=== PATIENT | male | born 1950 | race Caucasian/White ===

== ENCOUNTER → 2016-04-10 | Outpatient (CLI) | payer MEDICARE, OTHER ==
[2016-04-10 14:36] LABS: MEAN CORPUSCULAR HEMOGLOBIN 31.7 pg (27.0-33.0); MEAN CORPUSCULAR HGB CONC 33.4 g/dl (32.0-36.5); RED CELL DISTRIBUTION WIDTH 12.8 % (11.5-14.5); WHITE BLOOD COUNT 5.7 K/mm3 (4.0-10.0)
[2016-04-10 15:20] LABS: ALBUMIN/GLOBULIN RATIO 1.11 (1.00-1.93); ALKALINE PHOSPHATASE 60 U/L (45-117); ALT/SGPT 28 U/L (12-78); ANION GAP 5 MEQ/L (8-16); AST/SGOT 27 U/L (15-37); BILIRUBIN,TOTAL 0.9 MG/DL (0.2-1.0); BLOOD UREA NITROGEN 17 MG/DL (7-18); CALCIUM LEVEL 9.2 MG/DL (8.8-10.2); CARBON DIOXIDE LEVEL 31 MEQ/L (21-32); CHLORIDE LEVEL 107 MEQ/L (98-107); CREATININE FOR GFR 1.09 MG/DL (0.70-1.30); GLOMERULAR FILTRATION RATE > 60.0 (>49); GLUCOSE, FASTING 90 MG/DL (80-110); MAGNESIUM LEVEL 2.1 MG/DL (1.8-2.4); POTASSIUM SERUM 3.8 MEQ/L (3.5-5.1); SODIUM LEVEL 143 MEQ/L (136-145); TOTAL PROTEIN 7.6 GM/DL (6.4-8.2)
== END ==
LOC: M LAB 13:21
PROVIDERS: ATTEND Physician Assistant
DX: I48.0 Paroxysmal atrial fibrillation (principal)

== ENCOUNTER → 2016-08-02 | Outpatient (REF) | payer MEDICARE, OTHER | LOC: M LAB REF 16:10 | PROVIDERS: ATTEND Physician Assistant | DX: L02.511 Cutaneous abscess of right hand (principal) ==

== ENCOUNTER 2019-04-27 13:55 | Emergency (ER) | payer MEDICARE, OTHER ==
[~2019-04-27] VITALS: Ht 182.9 cm; Wt 101.2 kg
[2019-04-27] MEDS ORDERED: propofoL 1,000 MG in IV 1 EA IV SCH (14:20)
[2019-04-27] MEDS ORDERED: ETOMIDATE INJ 20MG/10ML VIAL IV ONE (14:30)
[2019-04-27] MEDS ORDERED: AMIODARONE HCL 360 MG in IV 1 EA IV SCH (14:30)
[2019-04-27] MEDS ORDERED: NS 500 ML IV ONE (14:30)
[2019-04-27] MEDS ORDERED: SUCCINYLCHOLINE INJ 200 MG/10 ML VIAL (J0330) IV ONE (14:30)
[2019-04-27 14:39] LABS: BASO # 0.1 10^3/uL (0.0-0.2); BASO % 0.5 % (0.0-1.0); EOS # 0.1 10^3/uL (0.0-0.5); EOS % 1.2 % (0.0-3.0); HEMATOCRIT 44.2 % (42.0-52.0); LYMPH % 25.5 % (24.0-44.0); MEAN CORPUSCULAR HEMOGLOBIN 31.5 pg (27.0-33.0); MEAN CORPUSCULAR HGB CONC 31.7 g/dl (32.0-36.5); MEAN CORPUSCULAR VOLUME 99.5 fl (80.0-96.0); MONO # 0.6 10^3/uL (0.0-0.8); MONO % 4.7 % (0.0-5.0); NEUTROPHILS # 7.6 10^3/uL (1.5-8.5); NEUTROPHILS % 64.4 % (36.0-66.0); PLATELET COUNT, AUTOMATED 310 10^3/uL (150-450); RED BLOOD COUNT 4.44 10^6/uL (4.30-6.10); WHITE BLOOD COUNT 11.8 10^3/uL (4.0-10.0)
[2019-04-27 14:44] LABS: ABG BASE EXCESS -7.5 (-2.0-2.0); ABG O2 SATURATION 94.3 % (95.0-99.0); ABG PARTIAL PRESSURE CO2 42.1 mmHg (35.0-45.0); ABG PARTIAL PRESSURE O2 78.7 mmHg (75.0-100.0); ABG STANDARD HCO3 18.4 MEQ/L (22.0-26.0); ABG TOTAL CO2 20.3 MEQ/L (23.0-31.0); ABG pH (ARTERIAL) 7.272 UNITS (7.350-7.450)
[2019-04-27 14:53] LABS: ALBUMIN 4.1 GM/DL (3.2-5.2); ALT/SGPT 77 U/L (12-78); BILIRUBIN,DIRECT 0.3 MG/DL (0.0-0.2); BILIRUBIN,TOTAL 0.7 MG/DL (0.2-1.0); BLOOD UREA NITROGEN 16 MG/DL (7-18); C REACTIVE PROTEIN QUANTITATIV < 0.30 MG/DL (0.00-0.30); CALCIUM LEVEL 8.6 MG/DL (8.8-10.2); CARBON DIOXIDE LEVEL 22 MEQ/L (21-32); CHLORIDE LEVEL 107 MEQ/L (98-107); CK-MB VALUE MASS 9.1 NG/ML (<3.6); CPK CREATINE PHOSPHOKINASE 559 U/L (39-308); CREATININE FOR GFR 1.47 MG/DL (0.70-1.30); FREE T4 1.02 NG/DL (0.76-1.46); GLOMERULAR FILTRATION RATE 50.4 (>42); GLUCOSE, FASTING 208 MG/DL (70-100); LIPASE 220 U/L (73-393); MAGNESIUM LEVEL 2.2 MG/DL (1.8-2.4); MB/CK RELATIVE INDEX 1.63 (< OR =4); NT-PRO BNP 696 PG/ML (<125); POTASSIUM SERUM 3.9 MEQ/L (3.5-5.1); SODIUM LEVEL 140 MEQ/L (136-145); TOTAL PROTEIN 7.4 GM/DL (6.4-8.2); TROPONIN I 0.13 NG/ML (< 0.10)
[2019-04-27 14:58] LABS: ERYTHROCYTE SEDIMENTATION RATE 7 mm/hr (0-20)
[2019-04-27 14:59] LABS: INR 1.29; PROTHROMBIN TIME 15.8 SECONDS (11.8-14.0)
--- NOTE | 2019-04-27 15:00 | REP ---
PORTABLE CHEST: AP supine portable film of the chest is performed. Endotracheal tube is seen. The tip is approximately 3 cm above the moisés. There is cardiomegaly. There is somewhat poor inhalation with mildly prominent vascular likely due to technical factors. No consolidating infiltrate is seen. Mediastinal silhouette appears magnified. Electronically Signed by Yevgeniy Saldivar MD 04/28/2019 01:48 P
[2019-04-27 15:15] LABS: ETHYL ALCOHOL (ETHANOL) 0.005 % (0.000-0.010)
[2019-04-27] MEDS ORDERED: METO1TAB7 PO (16:12)
[2019-04-27] MEDS ORDERED: XARE20TA PO (16:12)
[2019-04-27] MEDS ORDERED: AMIO200T40 PO (16:12)
[2019-04-27] MEDS ORDERED: LISI10TA4 PO (16:12)
[2019-04-27] MEDS ORDERED: LEVO25TA5 PO (16:12)
[2019-04-27] MEDS ORDERED: fentaNYL 100 MCG/2 ML INJECTION (J3010) IV ONE (16:30)
[2019-04-27] MEDS ORDERED: ROCURONIUM BROMIDE 50 MG/5 ML VIAL IV ONE (16:30)
[2019-04-27] MEDS ORDERED: NS 1,000 ML IV ONE ×2 (16:45→17:00)
[2019-04-27 16:54] VITALS: BP 123/81
--- NOTE | 2019-04-27 17:58 | REP ---
CT BRAIN WITHOUT CONTRAST: CT brain was performed without IV contrast. COMPARISON: 06/14/2014 There is mild atrophy. There is no midline shift or mass effect. No acute intracranial hemorrhage is seen. There is no extra-axial fluid collection. There is extensive opacification of the nasal cavity. There is mild opacification of inferior ethmoid air cells. IMPRESSION: No acute intracranial abnormality. Electronically Signed by Yevgeniy Saldivar MD 04/28/2019 10:29 P
--- NOTE | 2019-04-27 18:36 | ECGEPIP ---
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
--- NOTE | 2019-04-27 19:09 | REP ---
CHEST, PORTABLE: AP supine portable film of the chest is performed and compared to prior exams of the same day. Endotracheal tube is unchanged in position. Nasogastric tube traverses into the stomach. Pulmonary vasculature is prominent with cardiomegaly. There is mild right base atelectasis/infiltrate. There is increased left base atelectasis/infiltrate. Electronically Signed by Yevgeniy Saldivar MD 04/28/2019 10:31 P
--- NOTE | 2019-04-28 07:00 | REP ---
CHEST, PORTABLE: AP, supine, portable view of the chest is performed and compared to prior exam of the same day. Endotracheal tube is unchanged in position with the tip 3 cm above the moisés. Nasogastric tube is placed and traverses into the stomach. There is cardiomegaly There appears to be patchy atelectasis or infiltrate in the right lung base. Electronically Signed by Yevgeniy Saldivar MD 04/28/2019 10:32 P
== END 2019-04-27 16:58 | disposition short-term general hospital (02) ==
LOC: EDBD 13:55 → M ED 13:55
DX: I46.9 Cardiac arrest, cause unspecified (principal); I48.91 Unspecified atrial fibrillation; I51.7 Cardiomegaly; J98.11 Atelectasis; Z87.891 Personal history of nicotine dependence; Z93.0 Tracheostomy status; Z79.84 Long term (current) use of oral hypoglycemic drugs; Z79.899 Other long term (current) drug therapy
CPT/HCPCS: 36415; 36600; 51702; 70450; 71045; 80047; 80048; 80076; 82550; 82553; 82803; 83690; 83735; 83880; 84439; 84443; 84484; 85025; 85610; 85652; 85730; 86140; 87040; 92950; 93005; 93041; 94760; 96374; 99285; G0480; J0282; J0330; J3010

== ENCOUNTER 2019-05-12 14:06 | Inpatient (IN) | payer MEDICARE, OTHER ==
[~2019-05-12] VITALS: Ht 177.8 cm; Wt 90.7 kg
[~2019-05-12 14:06] MED LIST: AMIO200T40 PO; LEVO25TA5 PO; LISI10TA4 PO; METO1TAB7 PO; XARE20TA PO
[2019-05-12] MEDS ORDERED: ACETAMINOPHEN TAB 650MG DOSE (2X325MG) PO PRN (14:30)
[2019-05-12] MEDS ORDERED: AMIODARONE 150MG/3ML INJ (J0282) IVP STA (14:36)
[2019-05-12] MEDS ORDERED: DIGOXIN INJ 0.5 MG/2 ML AMP (J1160) IV ONE ×2 (15:00→18:00)
[2019-05-12 15:29] VITALS: BP 136/88
--- NOTE | 2019-05-12 15:30 | REP ---
Clinical: Heart failure. Technique: PA and lateral. Comparison: 04/27/2019. Findings: Cardiomegaly pulmonary vascular congestion, large left pleural effusion, small right pleural effusion and bibasilar atelectasis. No pneumothorax. Skeletal structures intact. Dual lead pacemaker noted. Impression: Cardiomegaly and CHF including pleural effusions (left greater than right) and bibasilar atelectasis. Electronically Signed by Fred Simmons MD 05/12/2019 03:22 P
[2019-05-12] MEDS ORDERED: AMIODARONE HCL 150 MG/100 ML PREMIXED BAG (NEXTERONE) (J0282 PER 30MG) IV ONE (15:45)
[2019-05-12] MEDS: FUROSEMIDE 20 MG/2 ML VIAL (J1940) IV SCH ×2 (15:56→20:04)
[2019-05-12] MEDS ORDERED: VITMTA PO (16:02)
[2019-05-12] MEDS ORDERED: ATOR1TAB21 PO (16:02)
[2019-05-12] MEDS ORDERED: THIA100T7 PO (16:02)
[2019-05-12] MEDS ORDERED: ASPI81CH33 PO (16:02)
[2019-05-12] MEDS ORDERED: ACET-683 PO (16:02)
[2019-05-12] MEDS ORDERED: FOLI1TAB11 PO (16:02)
[2019-05-12] MEDS ORDERED: CARV3.12 PO (16:02)
[2019-05-12] MEDS ORDERED: LEVO25TA5 PO (16:02)
[2019-05-12] MEDS ORDERED: ELIQ5TAB PO (16:02)
[2019-05-12] MEDS ORDERED: LISI10TA4 PO (16:02)
[2019-05-12] MEDS ORDERED: CLOP75TA2 PO (16:02)
[2019-05-12] MEDS ORDERED: NITR4TASL SL (16:02)
[2019-05-12 16:23] LABS: HEMATOCRIT 31.5 % (42.0-52.0); MEAN CORPUSCULAR HEMOGLOBIN 31.6 pg (27.0-33.0); MEAN CORPUSCULAR HGB CONC 31.7 g/dl (32.0-36.5); MEAN CORPUSCULAR VOLUME 99.7 fl (80.0-96.0); PLATELET COUNT, AUTOMATED 599 10^3/uL (150-450); RED BLOOD COUNT 3.16 10^6/uL (4.30-6.10); WHITE BLOOD COUNT 9.9 10^3/uL (4.0-10.0)
--- NOTE | 2019-05-12 16:26 | HPE ---
ADMISSION HISTORY AND PHYSICAL : DATE OF ADMISSION: 05/12/2019 PRIMARY PHYSICIAN: Dr. Delfino Olson ATTENDING PHYSICIAN: Dr. Meliton Leger INDICATION: Recurrent atrial fibrillation with rapid ventricular response with acute on chronic heart failure (systolic and diastolic dysfunction). HISTORY: This is a 68-year-old disabled, resident of [place] with three grown children has had a recent very eventful history. Successfully resuscitated from a cardiac arrest 04/27/2019. Transferred to [facility] and underwent cardiac catheterization on 04/30/2019 showing global left ventricular hypokinesis, left ventricular ejection fraction (LVEF) 25%, left ventricular end-diastolic pressure 24 mmHg with no major coronary artery obstruction simply a small distal obtuse marginal branch of the circumflex with 85% stenosis. 05/03/2019 underwent stenting of his third obtuse marginal branch. 05/03/2019 underwent implantation of biventricular implantable cardioverter defibrillator (ICD) in light of congestive heart failure/left bundle branch block and resuscitated ventricular fibrillation without clear-cut reversible precipitating factor. 05/04/2019, he was discharged from [facility] with instructions to maintain a modest salt and fluid intake restriction and on carvedilol, aspirin, clopidogrel, atorvastatin, low-dose levothyroxine, lisinopril, folic acid, Eliquis 5 mg twice a day, and was to arrange for a followup appointment with our office. Recently scheduled for 05/16/2019. He was seen today following remote monitor report of his ICD showing recurrent atrial fibrillation with rapid ventricular response. His last visit here prior to his cardiac arrest 04/06/2019, he had stopped all his medications including amiodarone for his known paroxysmal atrial fibrillation. Had gained at least 5 pounds and has developed obvious systemic edema, effort dyspnea and some orthopnea. Has been unaware of his heart action and denies any chest pain. He describes a nonproductive cough with no hemoptysis. Denies any lightheadedness or dizziness. Today, he admits to drinking at least six alcoholic beverages daily including beer, liquor and wine and had not stopped drinking. CORONARY RISK FACTORS: Advanced age. Male gender. Obesity, hypertension, prior long-term smoker, still smokes a cigar occasionally. No history of diabetes, hypercholesterolemia, symptomatic carotid vascular disease or family history of premature coronary heart disease. OTHER PAST MEDICAL PROBLEMS/SURGICAL PROBLEMS: Obesity, hypothyroidism, dilated cardiomyopathy with cardiomegaly dating back to at least 2014. Paroxysmal atrial fibrillation dating back to 2014. 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 EKG rate related left bundle branch block. Reduced visual acuity left eye due to retained cortical debris. Seasonal allergies. Alcoholism. Remote arm fracture requiring surgical reduction. Cholecystectomy 1990. Left eye surgery May 2014. Bilateral cataract extraction with lens replacements. SYSTEMS REVIEW: Reports fatigue but no fever, night sweats or chills. Wears corrective lenses for reading. No apparent hearing problem. Cough but no hemoptysis or purulent sputum production. No history of prior pneumonia. Somewhat reduced appetite but no heartburn, dysphagia, abdominal pain or change in bowel habit. No gastrointestinal (GI) bleeding. Nocturia three times nightly is chronic. No dysuria or hematuria. Occasional leg cramps but no joint complaints. Skin dryness but no rashes, ecchymotic lesions. History of anxiety, depression and alcoholism. Environmental seasonal allergies but no frequent infections. All other systems review is negative. MEDICATIONS: Current medications include: - Carvedilol 3.125 mg twice a day - atorvastatin 20 mg nightly - aspirin 81 mg daily - clopidogrel 75 mg daily - Eliquis 5 mg twice a day - levothyroxine 25 mcg daily - multivitamin 1 tablet daily - thiamine 100 mg by mouth daily - folic acid 1 mg daily - Tylenol 325 mg tablets 1 or 2 tablets every 4 hours as needed ALLERGIES: NONE KNOWN. PHYSICAL EXAMINATION: CONSTITUTIONAL: Somewhat barrel-chested, overweight elderly male was not comfortable lying flat but no dyspnea lying with the head of bed elevated 30 degrees or with him sitting. No obvious pallor or cyanosis. VITAL SIGNS: Heart rate 126 beats per minute and irregular, blood pressure 112/66 sitting, respiratory rate 18. Weight 218 pounds, height 71 inches, body mass index (BMI) 30.4 EYES: No obvious pallor or icterus. No xanthelasma. ENT/MOUTH: Normal oral moisture. No central cyanosis or pallor. NECK: Trachea midline. Thyroid did not appear to be enlarged. Jugular veins elevated at least 14 cm above the sternal angle. RESPIRATORY: Increased anteroposterior chest diameter with healed left subclavian ICD incision. Bibasilar dullness with few inspiratory rales. Prolongation of expiration but no audible wheeze. Apical impulse not palpable. Heart sounds were distant and variable. No clear audible gallop or murmur. Normal carotid upstroke but variable volume related to his arrhythmia. No bruits. Upper extremity pulses were symmetrical and normal. Abdominal aorta not palpable. Femoral pulses were difficult as were pedal pulses because of marked pedal edema. Has 1 cm pitting edema of his ankles, 4 mm pitting edema of his mid tibia, 1 mm of his proximal tibia, and none above his knees but up to 2 mm pitting edema his over sacrum and lower lumbar spine posteriorly. EXTREMITIES: No clubbing, peripheral cyanosis or splinter hemorrhages. GASTROINTESTINAL: Somewhat overweight, nontender, soft abdomen. Hepatomegaly but no splenomegaly. A few bowel sounds. Rectal examination not indicated. MUSCULOSKELETAL: No obvious joint deformities. Some proximal muscle weakness but normal tone. Normal spine curvature. NEURO/PSYCH: Appears somewhat lethargic and depressed but alert and oriented and gave a fair history. Normal symmetrical eye, facial, extremity movements. No involuntary movements. SKIN: No rashes, ecchymotic lesions, pallor or icterus. INVESTIGATIONS: Last available blood work from [facility] the time of his discharge showed a hemoglobin of 14, white blood cell count 11.8 thousand, normal platelet count. Electrolytes were normal with potassium 3.9, BUN 16 and creatinine 1.47, albumin 4.1, SGOT was elevated at 131, SGPT was 77, alkaline phosphatase was normal at 86, random glucose 208. CPK at the time of his discharge from hospital in [place] was elevated at 559 with negative MB fraction. Troponin I level was indeterminate at 0.13. Pro-BNP level was elevated at 696. Magnesium level was 2.2. Ultrasensitive TSH was elevated 17.5. Chest x-ray 05/03/2019: Portable upright study at [facility] showed obvious cardiomegaly with improving pulmonary edema and pleural effusions. Left-sided biventricular ICD pulse generator with no pneumothorax. EKG: Study performed today showed underlying atrial fibrillation with ventricular response averaging 125 bpm. Rare appropriate ventricular paced complex. Spontaneous complexes have a leftward axis and left bundle branch block configuration with QRS duration 169 ms. Last available EKG from [facility] 05/04/2019 showed consistent AV sequentially paced rhythm with biventricular pacing and QRS complexes measuring 96 ms with an incomplete left bundle branch block pattern. IMPRESSION/PLAN: 1. Paroxysmal atrial fibrillation with rapid ventricular response: Optimal rate control would be considered jones in order to improve left ventricular performance and prevent inappropriate ICD discharge. We will plan on giving him digoxin 0.25 mg IV and perhaps additional doses according to his ventricular response. He will be also started on bisoprolol 2.5 mg by mouth four times a day, hold for heart rate less than 100. In light of his history of recurrent paroxysmal atrial fibrillation and recent echocardiogram reporting no more than a mildly dilated left atrium as well as his history of ventricular fibrillation, we have also elected to start him on amiodarone starting with 200 mg by mouth four times a day. He will of course continue on his Eliquis oral anticoagulant therapy. Stool will be collected for occult blood. 2. Heart failure (systolic and diastolic dysfunction/acute on chronic): Well-documented dilated cardiomyopathy suspected to be related to his alcoholism plus/minus hypertension. No significant coronary or valvular heart disease. The crucial importance of alcohol cessation will be emphasized. He will be admitted to a telemetry unit for close monitoring and will be kept on a modest salt and fluid intake restriction. Temporarily, we will restrict his activities while we initiate diuresis. We will request the assistance of the cardiac rehabilitation program for congestive heart failure (CHF) education and gradual ambulation. He will be given Lasix IV 20 mg every 4 hours hoping to obtain a negative fluid balance of 1 liter daily. We will also initiate low-dose spirolactone 12.5 mg daily by mouth. As mentioned above, he will be placed on bisoprolol beta- val for his heart failure and rate control. Remains on oral anticoagulant therapy to protect him from a deep venous thrombosis with his restricted activity. His stool softener will be continued. A followup echocardiogram/Doppler study will be obtained tomorrow once his ventricular response is controlled. 3. Dilated cardiomyopathy: As mentioned above, suspected to be related to alcoholism and hypertension. Recent cardiac catheterization showing severe left ventricular dysfunction partially related to his left bundle branch block and paradoxical septal wall motion. Recently underwent cardiac resynchronization procedure with his last EKG showing a dramatic improvement with relatively narrow QRS complexes. We are cautiously optimistic that if his rate can be controlled and hopefully converted to sinus rhythm that this may have a dramatic positive impact on his longevity especially if he is able to abstain from alcohol. Pending his response to his beta-val and combination diuretic therapy, we have not started a vasodilator as he had been quite hypotensive while in [facility] recently. We will of course continue to monitor his chemistry and renal function closely. 4. Post cardiac arrest/biventricular ICD in situ: Gratifyingly, he has been free of ICD discharge despite intermittently rapid ventricular responses to with atrial fibrillation. His device is a 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 Recent intracardiac electrograms showed excellent values. He also had an excellent atrial pacing threshold. Ventricular pacing thresholds were also excellent when last measured 05/03/2019. 5. Coronary artery disease (conf[place] sal[place] vessel)/post obtuse marginal stenting: As mentioned above, really does not have any significant coronary obstruction. This small obtuse marginal branch was stented but was not believed to be a culprit responsible for his recent cardiac arrest. Of course, he will continue on controlled beta-val, aspirin and Plavix. However, his atorvastatin may be placed on hold temporarily along with his aspirin. His elevated CPK is suspected to be on the basis of rhabdomyolysis. Followup CPK is pending at this time. 6. Hypothyroidism (unspecified): Has been on at least low-dose levothyroxine because of prior amiodarone therapy. His amiodarone had been discontinued shortly prior to his cardiac arrest 03/04/2019 by the patient himself. We will continue to monitor his TSH carefully and make dose adjustments as necessary to his hormone replacement. We have discussed these plans with the patient and his family who appeared to understand and agree. Further investigations and treatment will depend upon his response to these initial measures. KUSHALD
[2019-05-12 16:56] LABS: ALBUMIN 3.5 GM/DL (3.2-5.2); ALT/SGPT 25 U/L (12-78); BILIRUBIN,TOTAL 0.9 MG/DL (0.2-1.0); BLOOD UREA NITROGEN 22 MG/DL (7-18); CALCIUM LEVEL 8.8 MG/DL (8.8-10.2); CARBON DIOXIDE LEVEL 29 MEQ/L (21-32); CHLORIDE LEVEL 105 MEQ/L (98-107); CREATININE FOR GFR 1.03 MG/DL (0.70-1.30); GLOMERULAR FILTRATION RATE > 60.0 (>42); GLUCOSE, FASTING 106 MG/DL (70-100); POTASSIUM SERUM 4.8 MEQ/L (3.5-5.1); SODIUM LEVEL 139 MEQ/L (136-145); TOTAL PROTEIN 6.9 GM/DL (6.4-8.2)
[2019-05-12 16:57] LABS: CK-MB VALUE MASS 1.6 NG/ML (<3.6); CPK CREATINE PHOSPHOKINASE 71 U/L (39-308); MB/CK RELATIVE INDEX 2.25 (< OR =4); TROPONIN I < 0.02 NG/ML (< 0.10)
[2019-05-12 17:04] LABS: MAGNESIUM LEVEL 2.2 MG/DL (1.8-2.4); THYROID STIMULATING HORMONE 13.4 uIU/ML (0.358-3.740)
[2019-05-12] MEDS: SPIRONOLACTONE 12.5MG PER 1/2 TABLET PO SCH (17:04)
[2019-05-12] MEDS: BISOPROLOL FUM 2.5 MG PER 1/2TAB PO SCH ×2 (17:04→20:05)
[2019-05-12] MEDS ORDERED: AMIODARONE HCL 150 MG in IV 1 EA IV STA (17:46)
[2019-05-12 20:00] VITALS: BP 125/84
[2019-05-12] MEDS: DOCUSATE SODIUM 100 MG CAP PO SCH (20:04)
[2019-05-12] MEDS: APIXABAN 5 MG TAB (ELIQUIS) PO SCH (20:04)
[2019-05-12] MEDS: FAMOTIDINE 20 MG TAB PO SCH (20:05)
[2019-05-12] MEDS: AMIODARONE 200 MG TAB (PACERONE) PO SCH (20:05)
[2019-05-12] MEDS ORDERED: ATORVASTATIN 20 MG TAB PO SCH (21:00)
[2019-05-13] VITALS (7 sets, daily range): BP systolic 96–126; BP diastolic 59–80
[2019-05-13] MEDS: FUROSEMIDE 20 MG/2 ML VIAL (J1940) IV SCH ×6 (00:35→20:00)
[2019-05-13] MEDS ORDERED: FLUBLOK(EGG FREE)(QUAD)INFLUENZA VACC 0.5ML SYRINGE (90682)18YRS&OLDER IM SCH (01:45)
[2019-05-13] MEDS ORDERED: PNEUMOCOCCAL VACCINE 0.5ML SYRINGE(90732) PNEUMOVAX 23 IM SCH (01:45)
[2019-05-13 05:32] LABS: ALBUMIN 3.5 GM/DL (3.2-5.2); BLOOD UREA NITROGEN 26 MG/DL (7-18); CALCIUM LEVEL 8.8 MG/DL (8.8-10.2); CARBON DIOXIDE LEVEL 32 MEQ/L (21-32); CHLORIDE LEVEL 100 MEQ/L (98-107); CREATININE FOR GFR 1.26 MG/DL (0.70-1.30); GLOMERULAR FILTRATION RATE > 60.0 (>42); GLUCOSE, FASTING 93 MG/DL (70-100); PHOSPHORUS LEVEL 3.9 MG/DL (2.5-4.9); POTASSIUM SERUM 4.5 MEQ/L (3.5-5.1); SODIUM LEVEL 137 MEQ/L (136-145)
--- NOTE | 2019-05-13 07:26 | ECGEPIP ---
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
[2019-05-13] MEDS: THIAMINE 100 MG TAB PO SCH (08:40)
[2019-05-13] MEDS: FOLIC ACID 1 MG TAB PO SCH (08:40)
[2019-05-13] MEDS: BISOPROLOL FUM 2.5 MG PER 1/2TAB PO SCH ×4 (08:40→20:33)
[2019-05-13] MEDS: MULTIVITAMINS/MINERALS THERAP 1 TAB PO SCH (08:40)
[2019-05-13] MEDS: SPIRONOLACTONE 12.5MG PER 1/2 TABLET PO SCH (08:41)
[2019-05-13] MEDS: APIXABAN 5 MG TAB (ELIQUIS) PO SCH ×2 (08:41→20:33)
[2019-05-13] MEDS: AMIODARONE 200 MG TAB (PACERONE) PO SCH ×4 (08:41→20:33)
[2019-05-13] MEDS: DOCUSATE SODIUM 100 MG CAP PO SCH ×2 (08:41→20:29)
[2019-05-13] MEDS ORDERED: CLOPIDOGREL 75 MG TAB PO SCH (09:00)
--- NOTE | 2019-05-13 10:07 | ECGEPIP ---
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
--- NOTE | 2019-05-13 18:52 | ECHO ---
DATE OF PROCEDURE: 05/13/2019 AGE: 68 GENDER: Male HEIGHT: 70 inches WEIGHT: 220 pounds BODY SURFACE AREA: 2.18 m2. PATIENT LOCATION: Inpatient, ICU, room 3203 REFERRING PHYSICIAN: Meliton Leger MD INDICATION: Heart failure (unspecified). Paroxysmal atrial fibrillation. 2D MEASUREMENTS: RV: 3.9 cm LV: 5.5 cm Septum: 1.4 cm Posterior wall: 1.3 cm Aortic root: 3.4 cm LA: 4.8 cm LVEF: 20%? DOPPLER MEASUREMENTS: AV: 0.9 m/s LVOT: 0.85 m/s LVOT diameter: 2.3 cm MV-E: 90 Early mitral deceleration time: 218 ms E prime medial: 6.2 E prime lateral: 6.5 Average E/E prime ratio: 14.2/PCWP: 19.5 mmHg PV: 0.75 m/s Pulmonary artery acceleration time: 70 ms RVSP: 56 mmHg IVC: 2.7 cm COMMENTS Underlying atrial fibrillation with fairly controlled ventricular response. Evidence of intermittent ventricular pacing alternating with spontaneous complexes both having an left bundle branch block (LBBB) configuration. Mild eccentric left ventricle hypertrophy with fairly globally severe hypokinesis with intermittent paradoxical septal motion and virtual akinesis of the apex. Moderately dilated left atrium with current Doppler estimated mean left atrial pressure that was at least mildly increased. Right heart chambers were upper limits of normal with hypokinesis and Doppler evidence of at least moderately severe pulmonary hypertension. Prominently dilated inferior vena cava without respiratory collapse in keeping with elevated central venous pressure. Mild aortic valvular sclerosis without stenosis but mild insufficiency. Normal aortic root and ascending aortic diameters. Normal-appearing mitral valvular apparatus with "low flow" appearance to leaflet motion, but no posterior systolic buckling. Mild mitral insufficiency. Normal appearing tricuspid valve with mild insufficiency. Pacing leads could be visualized traversing right heart structures. Large pericardial effusion measuring 1.3 cm anteriorly and a maximum of 3.3 cm posteriorly, but no evidence of cardiac chamber compression. Difficult to interpret Doppler findings, which vary with the patient's underlying atrial fibrillation and spontaneous versus paced QRS complexes. Left pleural effusion.
[2019-05-13] MEDS ORDERED: AMIODARONE HCL 150 MG in IV 1 EA IV STA (19:44)
[2019-05-13] MEDS ORDERED: DIGOXIN INJ 0.5 MG/2 ML AMP (J1160) IV ONE (19:45)
[2019-05-13] MEDS: FAMOTIDINE 20 MG TAB PO SCH (20:33)
[2019-05-13] MEDS: LEVOTHYROXINE 50MCG TABLET (0.05MG) PO SCH (20:33)
--- NOTE | 2019-05-13 20:33 | IPN ---
DATE: 05/13/2019 CARDIOLOGY PROGRESS NOTE: SUBJECTIVE: The patient claims that his breathing appears to be slightly better. He continues to have intermittent feeling of jumpiness or restlessness. Remains unaware of his heart action. No chest discomfort. No bleeding problems on his combination Plavix and Eliquis. OBJECTIVE: Overweight, somewhat barrel-chested, elderly male laying comfortably with head of the bed elevated at 30 degrees. Heart rate averaging 104 beats per minute (bpm) and regular with frequent irregularities. Blood pressure 109/59. Respiratory rate 16. Oxygen saturation 97% on room air. Afebrile. Intake and output balance in the past 24 hours has been negative one liter. Continues to have normal oral moisture and significantly elevated neck veins with lumbar, sacral and lower extremity pitting edema. Bibasilar dullness posteriorly with few bibasilar inspiratory rales. No wheezes. 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 Spontaneous QRS complexes with left bundle branch block alternating with appropriate biventricular paced complexes. EKG: This shows what is described above, underlying atrial fibrillation with controlled ventricular sponsor averaging 92 beats per minute with spontaneous complexes having a left bundle branch block morphology alternating with biventricular complexes that are slightly narrower with a normal axis and RBBB configuration. The rate today, however, was slower than yesterday. BLOOD WORK: Hemoglobin yesterday was 10.0 with normal white blood cell count but significantly elevated platelet count of 599,000. Chemistry shows electrolyte balance that has been preserved today despite diuretic therapy. BUN was 22 yesterday to 26 today, creatinine was 1.0 yesterday to 1.26 today. Fasting glucose today 93, magnesium level yesterday 2.2. Troponin I level was negative. Albumin was 3.5. Total CPK was normal at 71. Other liver function studies were also normal. Ultrasensitive TSH remains elevated at 13.4 but is improved from 17.5 04/27/2019 prior to starting his current thyroid medication. ECHOCARDIOGRAM: Study performed earlier today with separate official dictated report showed moderate eccentric left ventricle hypertrophy with global hypokinesis and intermittent paradoxical septal motion, estimated left ventricle ejection fraction 20% ?, moderately dilated left atrium with evidence of an elevated mean left atrial pressure. Right heart chamber sizes were at least mildly dilated with Doppler evidence of moderately severe pulmonary hypertension. Prominently dilated inferior vena cava with absent respiratory collapse in keeping with his clinical right heart failure. Mild aortic valvular sclerosis with mild insufficiency. Low flow appearance to mitral leaflet motion with mild mitral insufficiency. Pacing leads could be visualized traversing right heart structures but there was a large pericardial effusion measuring 1.3 cm anteriorly and 3.3 cm posteriorly, but no evidence of cardiac chamber compression. At least mild pleural effusion. IMPRESSION/PLAN: 1. Recurrent atrial fibrillation with rapid ventricular response: Despite combination digoxin, bisoprolol and amiodarone. Continues to have intermittently rapid ventricular responses. This irregularity obviously interferes with his biventricular pacing and is believed to have accounted for his decompensation. We have given him additional digoxin and intravenous amiodarone today. We have also increased his low pacing rate of his biventricular implantable cardioverter defibrillator (ICD) to 90 beats per minute for the time being. 2. Heart failure (systolic and diastolic/acute on chronic): Has some symptomatic improvement associated with a negative one liter fluid balance. We are hoping with the program changes of his device and additional negative chronotropic therapy and more regular biventricular pacing that left ventricular performance will improve. Current blood pressure is adequately controlled. We will be able to assess improved cardiac output from his blood urea nitrogen (BUN)/creatinine ratio. He remains on a modest salt and fluid intake restriction with IV diuretic therapy aiming for a negative fluid balance of one liter daily. 3. Pericardial effusion: Despite the magnitude of this effusion which is quite large, he does not have any current evidence of cardiac chamber compression or tamponade. I still feel that this will have to be dealt with a pericardiocentesis. At this point, we have placed his clopidogrel on hold and once this has been off for five days, we intend to temporarily withhold his Eliquis. Consultation will be placed with Dr. Maurice Bates, thoracic surgery, to help us deal with his fluid collection. I suspect it is on the basis of the trauma associated with his chest compression combined with combination antiplatelet and anticoagulant therapy. 4. Dilated cardiomyopathy: Heart failure as mentioned above. Recent echocardiogram shows persistence of severe left ventricular systolic impairment. We are cautiously optimistic that with regularization of his ventricular rate and increase in biventricular stimulation that this will improve. At this point, he is on digoxin, bisoprolol and diuretic therapy with low-dose spironolactone. Vasodilator therapy has not been started at this time because of his soft blood pressure and renal insufficiency. I am cautiously optimistic we will be able to add at least low-dose Entresto once his renal perfusion has improved. 5. Post cardiac arrest/biventricular ICD in situ: Has remained free of potentially malignant ventricular arrhythmia. Complete pacemaker/ICD interrogation was performed today and this shows intra-atrial electrograms that vary quite dramatically as we would expect with his atrial fibrillation, ventricular intracardiac electrograms are fine. We could not test his atrial pacing threshold with his atrial fibrillation but both right and left ventricular pacing thresholds were excellent. Current program settings ensure more than a 2:1 safety pacing margin. As mentioned above, we have at least temporarily increased his ventricular low rate in order to overdrive spontaneous activity and increase biventricular stimulation. We have also programmed his pacemaker to DDI in order to minimize inappropriate tracking of atrial fibrillation signal. 6. Coronary artery disease ([place] vessel)/post obtuse marginal stenting: As mentioned has been free of any chest discomfort. EKG ST/T wave changes are related to spontaneous alternating with ventricular paced complexes not ischemia. Troponin I level was negative. Remains on protective bisoprolol and Eliquis. His atorvastatin has been placed on hold because of prior rhabdomyolysis and his Plavix has been placed on hold in preparation for possible pericardiocentesis. 7. Hypothyroidism: On his low-dose thyroid replacement therapy, levofloxacin 25 mcg daily, his ultrasensitive thyroid-stimulating hormone (TSH) has decreased over the course of the past two weeks. We will plan on resuming this today, administering it at bedtime to maximize absorption. The patient appears to understand the complex nature of his medical problems and is in agreement with our current plan.
[2019-05-14] VITALS: BP 99/61
[2019-05-14] MEDS: FUROSEMIDE 20 MG/2 ML VIAL (J1940) IV SCH ×5 (00:03→16:00)
[2019-05-14 04:00] VITALS: BP 110/64
[2019-05-14 05:09] LABS: ALBUMIN 3.3 GM/DL (3.2-5.2); CALCIUM LEVEL 7.8 MG/DL (8.8-10.2); CREATININE FOR GFR 1.39 MG/DL (0.70-1.30); GLOMERULAR FILTRATION RATE 53.8 (>42); PHOSPHORUS LEVEL 3.9 MG/DL (2.5-4.9); POTASSIUM SERUM 4.3 MEQ/L (3.5-5.1)
[2019-05-14] MEDS: LEVOTHYROXINE 50MCG TABLET (0.05MG) PO SCH (06:16)
--- NOTE | 2019-05-14 06:55 | ECGEPIP ---
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
[2019-05-14 08:00] VITALS: BP 114/61
[2019-05-14] MEDS: MULTIVITAMINS/MINERALS THERAP 1 TAB PO SCH (08:08)
[2019-05-14] MEDS: APIXABAN 5 MG TAB (ELIQUIS) PO SCH (08:08)
[2019-05-14] MEDS: FOLIC ACID 1 MG TAB PO SCH (08:08)
[2019-05-14] MEDS: AMIODARONE 200 MG TAB (PACERONE) PO SCH ×4 (08:08→21:57)
[2019-05-14] MEDS: THIAMINE 100 MG TAB PO SCH (08:08)
[2019-05-14] MEDS: SPIRONOLACTONE 12.5MG PER 1/2 TABLET PO SCH (08:09)
[2019-05-14] MEDS: DOCUSATE SODIUM 100 MG CAP PO SCH ×2 (09:00→22:08)
[2019-05-14] MEDS: BISOPROLOL FUM 2.5 MG PER 1/2TAB PO SCH ×3 (09:00→17:00)
--- NOTE | 2019-05-14 09:59 | MHCRPDOC ---
[facility] Consultation Consultation Consult Esa Pemberton MRN: N/A Date of : N/A Date of Service: 05/14/2019 Chief Complaint Consultation for depression. History of Present Illness Patient is a 68-year-old man who had presented after cardiac arrest, had a psychiatric consult initiated as the patient reportedly had been struggling with the adjustment due to his health problems. He has had 2 cardiac problems and had a cardiac arrest prior to this admission. He has met within the ICU. During the entirety of his stay, he denied any suicidal or homicidal ideation and the consultation revealed no concerns from the consulting attending about suicidality, but the primarily consulting for "pressure." I met with the patient. He reported that he was feeling down about the situation, but had otherwise been trying to have a "attitude" about his cardiac arrest. He reports that at times he feels down; however, he has not had significant psychiatric history and generally tries to focus on the positive things in life. He reports that multiple stressors do make him feel down, but does not have any neurovegetative symptoms consistent with MDD. Review Of Systems Depression: The patient denies any episodes of unprovoked depressed mood associated with neurovegetative symptoms lasting longer than 2 weeks with symptoms present nearly everyday. Anxiety: The patient denies any excessive worry associated with physical symptoms. They deny any experience of discreet panic in the past. Therese: The patient denies any episodes of euphoria/dysphoria associated with decreased need for sleep, hedonism, talkatively or impulsivity lasting longer than 5 days. Psychotic: The patient denies any experiences of auditory or visual hallucinations. They deny any episodes of paranoia or delusional thinking in the past Trauma: The patient denies any traumatic events associated with nightmares or intrusive thoughts. Borderline: The patient screens negative for borderline personality at this junction. Past Psychiatric History The patient reports no history of psychiatric admissions, medication trials or current follow up. Denies any history of suicide attempts. Family Psychiatric History The patient denies/is unaware any history of mental health history including addictions and suicide. Social History Patient grew up in the local area, had worked for quite some time and then had retired. The patient has no history of legal problems, has been to his for many years. He reports she has health problems and this is a stressor. He works part-time at [employer] and reports he likes that. Denies any history of substance use, reports he used to smoke tobacco 23 years ago, but denies any excessive alcohol use, opioid use, stimulant use or any other concerning issues. He lives with his at this time. Medical History Has significant cardiac problems. Allergies See below Mental Status Examination General: Well dressed with good hygiene Speech: Spontaneous and fluid Thought processes: Linear and logical MSK: Smooth and coordinated gait, no signs of tremors or involuntary orofacial movements Thought content: Future orientated Abstract reasoning, and computation: Intact Description of associations: Intact Description of abnormal or psychotic thoughts: Denies any suicidal or homicidal ideation. Denies any auditory or visual hallucinations. Does not appear to be responding to internal stimuli. Does not appear to be endorsing any bizarre or paranoid ideation. Judgment: fair Insight: fair Orientation: Alert and orientated 3 Cognition: Grossly normal Recent and remote memory: Intact Attention span and concentration: Intact Fund of knowledge: Adequate Mood: "okay" Affect: Euthymic with a full range Diagnoses Situational disturbance. Assessment and Plan Patient is a 68-year-old man with a history not consistent of any psychiatric concerns presents after cardiac arrest. A consultation was called for reactive depression. I attempted to investigate the chart, his nursing staff and other collateral sources of information in his medical care here including the attending physician; however, there has been no concerns relate about suicidal thoughts. Reportedly, there was concerns from a family member "a nephew" about his reported depression; however, I was not able to ascertain who this was or was able to reach out to them in order to further ascertain if there was any concerns about suicide; however, the patient has been in the hospital for close to 48 hours and has been denying suicidal or homicidal ideation . After discussion with the patient, he declines a trial of antidepressants and feels that outpatient counseling would be more helpful for him. He does not meet involuntary criteria for psychiatric admission as I have no report of suicidal or homicidal ideation. He has a normal mental status exam fair insight into the situation appears to be primarily situational. He is future oriented and appears to be coping well and does not likely have a psychiatric illness at this time that I can diagnose given the symptoms obtained from him and thus he declines a voluntary admission to inpatient psychiatry and thus will not meet criteria to be treated there unless he change his mind. Disposition No inpatient psychiatry. Please return, call if there is any safety concerns or if suicidality emerges or further arise. Time Spent 30 minutes. Friday Vital Signs Vital Signs Date Time Temp Pulse Resp B/P (MAP) Pulse Ox O2 Delivery O2 Flow Rate FiO2 05/14/19 09:00 90 114/61 05/14/19 08:00 98.7 20 95 Room Air Laboratory Data 24H Labs Laboratory Tests 2 05/14/19 04:12: Anion Gap 8, Glomerular Filtration Rate 53.8, Calcium Level 7.8L, Phosphorus Level 3.9, Albumin 3.3 Home Medications Current Medications Current Medications Medications (Trade) Dose Ordered Sig/Jose Route PRN Reason Start Time Stop Time Status Last Admin Dose Admin Acetaminophen (Tylenol Tab) 650 mg Q4H PRN PO PAIN OR FEVER 05/12/19 14:30 Amiodarone HCl (Cordarone I.v.) 150 mg STAT STAT IVP 05/12/19 14:36 05/12/19 14:37 Cancel Amiodarone HCl (Pacerone, Cordarone) 200 mg QID PO 05/12/19 21:00 05/14/19 08:08 Amiodarone HCl 150 mg/IV Miscellaneous Supplies 100 ml @ 600 mls/hr STAT STAT IV 05/12/19 17:46 05/12/19 17:55 DC 05/12/19 18:00 Amiodarone HCl 150 mg/IV Miscellaneous Supplies 100 ml @ 600 mls/hr STAT STAT IV 05/13/19 19:44 05/13/19 19:53 DC 05/13/19 20:11 Apixaban (Eliquis) 5 mg BID PO 05/12/19 21:00 05/14/19 08:08 Atorvastatin Calcium (Lipitor) 20 mg QHS PO 05/12/19 21:00 05/12/19 15:31 DC Bisoprolol Fumarate (Zebeta) 2.5 mg QID PO 05/12/19 17:00 05/13/19 12:05 Clopidogrel Bisulfate (PLAVix) 75 mg DAILY PO 05/13/19 09:00 05/13/19 17:34 DC 05/13/19 08:41 Docusate Sodium (Colace) 100 mg BID PO 05/12/19 21:00 Famotidine (Pepcid) 40 mg QHS PO 05/12/19 21:00 05/13/19 20:33 Folic Acid (Folic Acid) 1 mg DAILY PO 05/13/19 09:00 05/14/19 08:08 Furosemide (LASIX injection) 20 mg Q4H IV 05/12/19 16:00 05/14/19 08:09 Home Med (Med Rec Complete!) ASDIRECTED XX 05/12/19 16:15 05/12/19 16:05 DC Influenza Virus Vaccine (Flublok Quad(Egg-Free)18y&Older Influenza) 0.5 ml ASDIRECTED IM 05/13/19 01:45 Levothyroxine Sodium (Synthroid) 50 mcg DAILY@06 PO 05/13/19 22:00 05/14/19 06:16 Magnesium Hydroxide (Milk Of Magnesia) 30 ml DAILY PRN PO CONSTIPATION 05/12/19 14:30 Multivitamins (Theragram-M) 1 tab DAILY PO 05/13/19 09:00 05/14/19 08:08 Pneumococcal Polyvalent Vaccine (Pneumovax 23) 0.5 ml ASDIRECTED IM 05/13/19 01:45 Spironolactone (Aldactone) 12.5 mg DAILY PO 05/12/19 09:00 05/14/19 08:09 Thiamine HCl (Thiamine HCl) 100 mg DAILY PO 05/13/19 09:00 05/14/19 08:08 Scheduled Apixaban (Eliquis) 5 Mg Tablet, 5 MG PO BID, (Reported) Aspirin (Aspirin) 81 Mg Tab.chew, 81 MG PO DAILY, (Reported) Atorvastatin Calcium (Atorvastatin Calcium) 20 Mg Tablet, 20 MG PO QHS, (Reported) Carvedilol (Carvedilol) 3.125 Mg Tablet, 3.125 MG PO BID, (Reported) Clopidogrel Bisulfate (Clopidogrel) 75 Mg Tablet, 75 MG PO DAILY, (Reported) Folic Acid (Folic Acid) 1 Mg Tablet, 1 MG PO DAILY, (Reported) Levothyroxine Sodium (Levothyroxine Sodium) 25 Mcg Tablet, 25 MCG PO QAM, (Reported) Lisinopril (Lisinopril) 10 Mg Tablet, 10 MG PO QHS, (Reported) Multivitamins (Thera M Plus Tablet) 1 Each Tablet, 1 TAB PO DAILY, (Reported) Thiamine HCl (Thiamine HCl) 100 Mg Tablet, 100 MG PO DAILY, (Reported) Scheduled PRN Acetaminophen (Acetaminophen) 500 Mg Tablet, 500 MG PO Q6H PRN for PAIN, (Reported) Nitroglycerin (Nitrostat) 0.4 Mg Tab.subl, 0.4 MG SL Q5MP PRN for CHEST PAIN, (Reported) Allergies Coded Allergies: No Known Allergies (Unverified , 03/21/14) ALYSSA SALEH DO May 14, 2019 09:59
[2019-05-14 12:00] VITALS: BP 123/81
--- NOTE | 2019-05-14 13:48 | REP ---
CT CHEST WITHOUT CONTRAST: HISTORY: Pericardial effusion. COMPARISON: Chest x-ray, May 12, 2019. CT FINDINGS: There is a large pericardial effusion visible. Four-chamber cardiomegaly is observed. Right ventricular contours do not appear to be flattened or compressed. There is a pacemaker in place. There is a small left-sided pleural effusion. There are small bilateral pleural effusions, left larger than right. There are a few scattered normal-sized mediastinal lymph nodes. On lung window settings, there is some atelectatic change in the lower lobes bilaterally, left more so than right. No infiltrate or mass lesion is observed. No bony destructive lesion is appreciated. There are clips in the gallbladder fossa. Normal adrenals are seen bilaterally. The left kidney is not visible in the left renal fossa. IMPRESSION: Large pericardial effusion. Small bilateral pleural effusions, left larger than right. Cardiomegaly. Question ectopic left kidney (not present in the left renal fossa). Electronically Signed by Leonardo Montana MD 05/14/2019 02:18 P
[2019-05-14 16:00] VITALS: BP 118/69
[2019-05-14 20:00] VITALS: BP 128/88
--- NOTE | 2019-05-14 20:39 | IPN ---
DATE: 05/14/2019 CARDIOLOGY PROGRESS NOTE SUBJECTIVE: The patient claims to be feeling quite well at this point, lying fairly flat without shortness of breath. Has been up without lightheadedness. Continues to feel jittery refraining from alcohol. Has met with psychiatry and thoracic surgery earlier today. Plans are for him to undergo percutaneous cardiocentesis tomorrow. OBJECTIVE: Overweight, barrel-chested male, lying comfortably. Heart rate 90 beats per minute and regular with irregularities. Blood pressure 118/69, respiratory rate 20, oxygen saturation 94% on room air. Afebrile. His weight today is down more than a kilogram from 2 days ago with negative fluid balance of 1200 mL yesterday and 1 liter so far today. Neck veins remain elevated but has improved air entry over both lung burks with no current inspiratory rales. No longer has sacral pitting edema but still has distal lower leg pitting up to the level of his knees bilaterally. 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 Spontaneous complexes having left bundle branch block pattern, which is wider than the paced complexes. EKG: This was reviewed independently and again shows underlying atrial fibrillation with mostly paced complexes showing an extreme leftward axis with the right bundle branch block configuration, in keeping with biventricular stimulation. Significantly improved from that on admission with more ventricular complexes. BLOOD WORK: Chemistry today confirms electrolyte balance with BUN that is increased to 34, creatinine that is increased to 1.39, glucose was 90. Albumin soft at 3.3. IMPRESSION/PLAN: 1. Recurrent atrial fibrillation with rapid ventricular response: Continues on amiodarone loading. With his renal insufficiency, I do not plan on administering further doses of digoxin but will plan on giving his bisoprolol routinely 5 mg twice a day to control his spontaneous activity and hopefully facilitate his biventricular pacing. Current oral anticoagulation is on hold in preparation for his pericardiocentesis tomorrow morning. 2. Heart failure (systolic and diastolic/acute on chronic): He has made some good progress with improvement in his congested state with combination of modest salt/fluid intake restriction, IV Lasix, and biventricular pacing. Frustratingly, has worsening renal function, though his blood pressure is not low. In preparation for his procedure tomorrow, I have placed his IV Lasix and spirolactone on hold. 3. Pericardial effusion: Remarkably despite the magnitude of this collection does not appear to have clinical evidence of tamponage. However, undoubtedly this will be a potential threat, and Dr. Maurice Bates has kindly agreed to help us. His antiplatelet therapy and anticoagulation have been placed on hold in preparation for his procedure. 4. Dilated cardiomyopathy: Heart failure, as mentioned above. Hopefully, with relief of his pericardial effusion, his increased biventricular stimulation, his cardiac output will improve and azotemia will decrease. 5. Postcardiac arrest/biventricular implantable cardioverter defibrillator (ICD) in situ: Remains free of ventricular arrhythmia on his current combination bisoprolol and amiodarone. 6. Coronary artery disease ([place] vessel)/post obtuse marginal stenting: No chest discomfort and EKG repolarization abnormalities due to ventricular pacing. Atorvastatin remains on hold at this time. Antiplatelet therapy and anticoagulation on hold in preparation for pericardiocentesis. 7. Hypothyroidism: Remains on levothyroxine 50 mcg daily. I appreciate the help provided by Dr. Bates and psychiatry. I suspect his jitteriness is related to alcohol withdrawal. At this point, he is on combination vitamin therapy, including thiamine, but no sedative has been prescribed.
[2019-05-14] MEDS: bisoproloL fumarate 5 MG TAB PO SCH (21:56)
[2019-05-14] MEDS: FAMOTIDINE 20 MG TAB PO SCH (21:57)
[2019-05-15] VITALS (36 sets, daily range): BP systolic 93–138; BP diastolic 57–84
[2019-05-15 05:17] LABS: ALBUMIN 3.2 GM/DL (3.2-5.2); CALCIUM LEVEL 8.6 MG/DL (8.8-10.2); CREATININE FOR GFR 1.49 MG/DL (0.70-1.30); GLOMERULAR FILTRATION RATE 49.6 (>42); PHOSPHORUS LEVEL 3.2 MG/DL (2.5-4.9); POTASSIUM SERUM 4.1 MEQ/L (3.5-5.1)
[2019-05-15] MEDS: LEVOTHYROXINE 50MCG TABLET (0.05MG) PO SCH (06:27)
[2019-05-15] MEDS: MULTIVITAMINS/MINERALS THERAP 1 TAB PO SCH (08:37)
[2019-05-15] MEDS: DOCUSATE SODIUM 100 MG CAP PO SCH ×2 (08:37→21:00)
[2019-05-15] MEDS: AMIODARONE 200 MG TAB (PACERONE) PO SCH ×4 (08:37→21:09)
[2019-05-15] MEDS: FOLIC ACID 1 MG TAB PO SCH (08:38)
[2019-05-15] MEDS: THIAMINE 100 MG TAB PO SCH (08:38)
[2019-05-15] MEDS: bisoproloL fumarate 5 MG TAB PO SCH ×2 (08:44→21:08)
--- NOTE | 2019-05-15 09:30 | ECGEPIP ---
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
[2019-05-15 09:46] LABS: INR 1.39; PROTHROMBIN TIME 16.7 SECONDS (11.8-14.0)
[2019-05-15 09:47] LABS: PARTIAL THROMBOPLASTIN TIME 31.7 SECONDS (25.0-38.4)
[2019-05-15] MEDS ORDERED: flumazeniL 0.5 MG/5 ML VIAL As Ordered ONE (11:25)
[2019-05-15] MEDS ORDERED: MIDAZOLAM INJ 2 MG/2 ML VIAL (J2250) As Ordered ONE ×2 (11:25→11:26)
[2019-05-15] MEDS ORDERED: LIDOCAINE 1% MDV 20ML VIAL As Ordered ONE (11:26)
--- NOTE | 2019-05-15 12:30 | REP ---
Clinical: Pericardiocentesis. Comparison: 05/12/2019. Findings: Cardiomegaly and lower lobe opacities similar to prior examination. Pericardial drainage catheter overlies the mediastinum. Underlying lung burks demonstrate chronic interstitial changes and mild interstitial edema cannot be excluded. Skeletal structures intact. Impression: Pericardial drainage catheter overlies the mediastinum. Cardiomegaly and left lower lobe opacities similar to prior examination. Cannot exclude interstitial edema. Electronically Signed by Fred Simmons MD 05/15/2019 12:21 P
[2019-05-15] MEDS ORDERED: ONDANSETRON 4MG/2ML VIAL (J2405) IV PRN (14:00)
[2019-05-15] MEDS ORDERED: BISACODYL 10 MG SUPP PR PRN (14:00)
[2019-05-15] MEDS ORDERED: NORCO, ANEXSIA 5/325MG TABLET (HYDROcodone/ACETAMINOPHEN) PO PRN (14:00)
[2019-05-15] MEDS ORDERED: LEVALBUTEROL 1.25 MG/0.5 ML CONCENTRATE NEB NEB PRN (14:00)
[2019-05-15] MEDS ORDERED: PERCOCET 5MG/325MG TAB PO PRN (14:00)
[2019-05-15] MEDS ORDERED: MIDAZOLAM INJ 2 MG/2 ML VIAL (J2250) IV STA (14:04)
[2019-05-15] MEDS ORDERED: LIDOCAINE 1% MDV 20ML VIAL SC ONE (14:15)
--- NOTE | 2019-05-15 14:28 | RO ---
DATE OF PROCEDURE: 05/15/2019 PREPROCEDURE DIAGNOSIS: Pericardial effusion. POSTPROCEDURE DIAGNOSIS: Pericardial effusion. PROCEDURE: Tube pericardiostomy and pericardiocentesis with echocardiographic control. SURGEON: Maurice Bates MD GEAR AND SPLINE GRINDER: ANESTHESIA: FINDINGS: The pericardium was drained of 1450 mL of old bloody pericardial fluid. This was sent for the requisite studies, including hematology, cytologies, bacteriologies, and chemistries. DESCRIPTION OF PROCEDURE: Under satisfactory moderate sedation achieved with 2 mg of Versed, the patient was prepped and draped in the usual sterile fashion. The site of the tube pericardiostomy had already been marked after determining the best window with echocardiography. The site was infiltrated with 1% lidocaine, and under echocardiographic control, an exploring needle was placed. It could be seen penetrating the pericardium, as well as withdrawing old dark crankcase oil type blood. The tract was dilated, and a tube pericardiostomy was placed, all under echocardiographic control. The tube was connected to a Thomson where 1450 mL of old blood was removed. The pericardial effusion was seen to completely disappear with echocardiogram control. The tube was secured to the chest wall with three 2-0 silk sutures and securely taped. The patient tolerated the procedure well, and a chest x-ray is pending.
--- NOTE | 2019-05-15 14:37 | CR ---
DATE OF CONSULTATION: 05/15/2019 REASON FOR CONSULTATION: Patient was seen at the request of Dr. Leger for pericardial effusion. HISTORY OF PRESENT ILLNESS: Patient is a 68-year-old white male who approximately 2 weeks ago on 04/19/2019, suffered a cardiac arrest at home. According to the patient, he was out in his garage feeding squirrels in the back. He felt lightheaded and came back to the house where he lost consciousness and has no memory of the event. His grandson and were with him and immediately started cardiopulmonary resuscitation (CPR). He was transported to this institution where he was stabilized and then sent to [facility]. He underwent cardiac catheterization with near total occlusion of a small distal obtuse marginal artery for which he underwent stenting. He underwent implantation of automatic implantable cardioverter defibrillator (AICD). His echocardiogram shows a dilated cardiomyopathy with a reported left ventricular and diastolic ejection fraction of 25% found during ventriculography with global ventricular hyperkinesis. At [facility] he was put on Eliquis and Plavix and discharged. Over the last week since discharge, particularly about 2 days after discharge, he started noticing increasing shortness of breath. Shortness of breath has increased so that has trouble going from his recliner and kitchen to the bathroom. He sleeps in the recliner usually. He does not report overt pain but in the last few days, he has had a distinct discomfort in his chest, which is exacerbated by lying flat and relieved with sitting up. He has had no cough. No fevers, chills or sweats and no sputum production. There is no dysphagia. He has gained about 7 pounds, he states since his discharge from [facility]. He has also noticed in the past week that his legs have become more swollen. His legs were not swollen prior to his cardiac event. PAST MEDICAL HISTORY: Hypothyroidism. The above cardiomyopathy. Paroxysmal atrial fibrillation. Probable alcohol abuse without delirium tremens (DTs). PAST SURGICAL HISTORY: Cholecystectomy in the remote past. Bilateral cataract surgery. Left elbow repair as a child. TRAVEL HISTORY: He has been [place] in the very remote past. No travel to the [facility] or to the [facility]. OCCUPATIONAL HISTORY: He used to work at the [employer] and now works at [employer] [place] ([facility] EXPOSURES: He has three cats at home. No dogs or birds. HABITS: Smoked a pack of [place] in the remote past. A pack would last him about 2 weeks. He does smoke an occasional cigar. He drinks 3-4 drinks a day of hard liquor. No illicit drugs. HOME MEDICATIONS: - carvedilol 3.125 mg twice a day - atorvastatin 20 mg daily - aspirin 81 mg daily - Plavix 75 mg daily - Eliquis 5 mg twice a day - Synthroid 25 mg daily - multivitamins one tablet daily - thiamine 100 mg daily - folic acid 1 mg daily - Tylenol 325 mg every 4 hours as needed for pain or discomfort. ALLERGIES: None. REVIEW OF SYSTEMS: Constitutional: See history of present illness (HPI). Without fever, chills, sweats or night sweats and without weight gain. Eyes: With out amaurosis fugax, without diplopia. Has had the above bilateral cataract extractions and repairs. Nose: Without epistaxis. Mouth: Has his own teeth. Many of which are missing. Pulmonary: See history of present illness (HPI). Cardiac: See HPI. GI: Without nausea, vomiting, diarrhea or constipation. Without melena or hematochezia, abdominal pain. Endocrine: Without diabetes but with hypothyroidism. Neurologic: Without paresthesias, paralysis or prior seizures. Hematologic: Denies prolonged bleeding times but he has not cut himself since being on Eliquis and Plavix. Psychiatric: Without pathological anxieties, depression or psychoses. PHYSICAL EXAMINATION: Well, developed, well-nourished white male in no acute distress. Temperature is 98.6, respiratory rate is 24 without the use of accessory muscles. He is 90% saturated on room air. His blood pressure is 95/61 to 116/71. He is in a paced rhythm of 90. Eyes: Pupils equal and round. Extraocular movements intact. Sclerae nonicteric. He has anisocoria with his left pupil larger than the right most likely secondary to his cataract extractions. Nose without deformity. Mouth shows his mucous membranes to be pink and moist. Lips and commissures without lesions. There is no thrush. He has multiple missing teeth, particularly on the top. Neck is supple there is no jugular venous distention. No subcutaneous emphysema. Trachea is midline. There are no carotid bruits and he has 2+ carotid upstrokes. No thyromegaly or lymphadenopathy. Lungs show decreased breath sounds in the left lower hemithorax with dull percussion note. I hear some bronchophony. Right lung clear with normal vesicular sounds. Abdomen is soft, nontender, obese. There is no hepatomegaly that I can detect, nor is there costovertebral angle tenderness (CVA). Bowel sounds are positive. Cardiac exam shows very distant heart sounds. I hear no murmurs, clicks gallops or any in particular rubs. I cannot feel his point of maximum impulse (PMI) through his obesity. Extremities show 2+ pretibial edema with 3+ ankle edema. He has varicosities on both legs. There is no differential swelling in the upper extremities. Skin is warm, dry and perfused without cyanosis or mottling including that of the nail beds and knees. Neuro shows II through XII intact along with gross motor and gross sensations. Gait is not tested. Psychiatric shows him to awake, alert, oriented times three with appropriate mood and affect and conversational. His white count is 9.9 with hemoglobin and hematocrit of 10.0 and 31.5 with a platelet count of 599. Electrolytes today show marginally low sodium 134 with the remainder normal with a potassium of 4.1 and a BUN and creatinine of 40 and 1.49, which is increased since his admission of 26 and 1.26. Albumin is 3.2 with a calcium of also 8.2. Glucose is 99. His PT/INR are 16.7 and 1.39 respectively with a PTT of 31.7. There are no blood gases on him. His chest x-ray on 05/12/2019 shows cardiomegaly with his left diaphragm being obscured. There is probably cephalization of vessels. The lateral film shows a left pleural effusion. His chest CT done on 05/14/2019 shows a large pericardial effusion, almost concentric, more posteriorly than anteriorly. Pericardium extends to the chest wall. There is a pleural effusion with compression of the left lower lobe. He has multiple rib fractures, 2, 3, 4, and 5 most likely from his compressions on the left. There are no rib fractures on the right. Liver looks to be intact and adrenals have a normal configuration. CT scan is done without contrast. I see no significant mediastinal lymphadenopathy. His echocardiogram confirms the large pericardial effusion. He does not have compression, although he has right ventricular hypertension. IMPRESSION: 1. Right pericardial effusion. 2. Pleural effusion. 3. Status post sudden cardiac arrest. 4. Coronary artery disease with stenting of his third marginal coronary artery. 5. Status post automatic implantable cardioverter defibrillator (AICD) placement. 6. Hypothyroidism. 7. Multiple rib fractures, probably from his cardiac compressions. PLAN/DISCUSSION: 1. I will proceed to a tube pericardiostomy. I believe we will do it under echo control. I do suspect that I am going to be finding blood in the pericardium, probably from an osmotic effusion secondary to both his anticoagulation combined with chest compressions. I do not think this is a chamber penetration from the AICD. His Plavix has been held for 2 days and his Eliquis has been held for 12 hours. Because of the size of the effusion, I think we need to proceed. I will not do anything with his pleural effusion at this point in time with expectations that it will be controlled by use of medical therapy. [facility]
--- NOTE | 2019-05-15 14:41 | IPN ---
CARDIOLOGY PROGRESS NOTE DATE: 05/15/2019 SUBJECTIVE: Patient currently is sitting at the bedside eating his lunch and claims to be feeling quite well, tolerated his pericardiocentesis and tube drainage performed earlier today by Dr. Bates without problem. OBJECTIVE: Overweight, slightly barrel-chested elderly male, appeared quite comfortable, sitting eating. Heart rate 90 bpm and more regular blood pressure 116/71 following his pericardiocentesis. Neck veins still appear to be elevated and he still has dependent edema. EKG MONITORING: Still has underlying atrial fibrillation with increased biventricular pacing, but still has occasional left bundle branch block, spontaneous pattern. Even with his current negative chronotropic therapies. EKG: Tracing taken earlier today reviewed independently, again still shows underlying atrial fibrillation but virtually all his QRS complexes were biventricular paced at this time, which is an improvement. CHEST X-RAY: Portable upright study performed following his pericardial chest tube placement again shows impressively enlarged cardiac shadow. Thoracic aorta did not appear to be abnormal. Pulmonary vasculature also did not appear to be accentuated. Interstitial markings were improved. Likely still has a left pleural effusion, but did not appear to have a right pleural effusion. His biventricular implantable cardioverter defibrillator (ICD) pulse generator and leads are stable in position. No pneumothorax. BLOOD WORK: PT/INR was requested earlier today and message 16.7 1.39, not terribly meaningful on a patient on Eliquis. Chemistry today showed a slight hyponatremia of 134. Other electrolytes were normal BUN has increased again today from his admission 22 and from 34 yesterday to 40. His creatinine frustratingly has also increased from 1.0 on admission, 1.39 yesterday, to 1.49 today. His fasting blood sugar was normal and 99. Albumin remains stable at 3.2. IMPRESSION/PLAN: 1. Persistent atrial fibrillation: Despite his current days of amiodarone 800 mg daily and his bisoprolol, he continues to be in atrial fibrillation. With regular bisoprolol, does not have as many spontaneous QRS complexes with left bundle branch block. His anticoagulation and antiplatelet therapy is currently on hold. 2. Heart failure (systolic and diastolic/acute on chronic): Clinically and radiographically, pulmonary congestion appears to be significantly improved. Still has some signs of right heart failure and dependent edema. However, in light of his renal function. Our plan is to withhold further diuretic at this time. 3. Pericardial effusion: Approximately 1.5 liters of bloody fluid was drained by Dr. Bates earlier today. I am cautiously optimistic that this may well improve his cardiac function and renal perfusion. Chest tube remains in situ, especially in light of his recent antiplatelet and anticoagulant therapies. Postprocedure chest x-ray shows no pneumothorax. 4. Dilated cardiomyopathy: As per heart failure mentioned above. At this point remains off any vasodilator therapy. Continues on amiodarone and bisoprolol, hoping to augment cardiac resynchronization therapy with his device. 5. Post cardiac arrest/biventricular ICD in situ: Continues to be free of complex ventricular arrhythmia. 6. Coronary artery disease (CAD) ([place] vessel)/post obtuse marginal (OM) stenting: Has remained free of anginal chest discomfort. EKG repolarization findings are related to his biventricular pacing and appear stable. As mentioned, his antiplatelet therapy remains on hold along with his atorvastatin. Continues on bisoprolol. 7. Hypothyroidism: No change has been made to his levothyroxine. Again, I appreciate Dr. Bates's assistance. We will continue to monitor him closely in the intensive care unit at this time. Will plan on obtaining a followup echocardiogram prior to withdrawing his pericardial tube.
[2019-05-15 14:44] LABS: SOURCE, BODY FLUID pH PERICARDIAL
[2019-05-15 14:57] LABS: APPEARANCE, BODY FLUID TURBID (CLEAR); SOURCE, BODY FLUID PERICARDIAL
[2019-05-15] MEDS: LEVALBUTEROL 1.25 MG/0.5 ML CONCENTRATE NEB NEB SCH ×2 (14:59→19:46)
[2019-05-15 15:39] LABS: AMYLASE, BODY FLUID < 4 U/L (NOT ESTABLISHED); CHOLESTEROL, BODY FLUID 51 MG/DL (NOT ESTABLISHED); LDH, BODY FLUID 2161 U/L (NOT ESTABLISHED); SOURCE, BODY FLUID ALBUMIN PERICARDIAL; SOURCE, BODY FLUID AMYLASE PERICARDIAL; SOURCE, BODY FLUID CHOL PERICARDIAL; SOURCE, BODY FLUID GLUCOSE PERICARDIAL; SOURCE, BODY FLUID LDH PERICARDIAL; SOURCE, BODY FLUID TOT PROTEIN PERICARDIAL; SOURCE, BODY FLUID TRIG PERICARDIAL; TRIGLYCERIDE, BODY FLUID 71 MG/DL (NOT ESTABLISHED)
[2019-05-15] MEDS: FAMOTIDINE 20 MG TAB PO SCH (21:07)
[2019-05-15] MEDS: PERCOCET 5MG/325MG TAB PO PRN (21:09)
[2019-05-16] VITALS (14 sets, daily range): BP systolic 90–129; BP diastolic 52–95
[2019-05-16] MEDS: PERCOCET 5MG/325MG TAB PO PRN ×3 (01:42→18:23)
[2019-05-16] MEDS: LEVALBUTEROL 1.25 MG/0.5 ML CONCENTRATE NEB NEB SCH ×4 (01:45→20:15)
[2019-05-16 05:27] LABS: HEMATOCRIT 30.6 % (42.0-52.0); HEMOGLOBIN 9.7 g/dl (13.5-17.5); MEAN CORPUSCULAR HEMOGLOBIN 30.9 pg (27.0-33.0); MEAN CORPUSCULAR HGB CONC 31.7 g/dl (32.0-36.5); MEAN CORPUSCULAR VOLUME 97.5 fl (80.0-96.0); PLATELET COUNT, AUTOMATED 576 10^3/uL (150-450); RED BLOOD COUNT 3.14 10^6/uL (4.30-6.10); WHITE BLOOD COUNT 7.8 10^3/uL (4.0-10.0)
[2019-05-16 05:46] LABS: ALBUMIN 2.8 GM/DL (3.2-5.2); CALCIUM LEVEL 8.4 MG/DL (8.8-10.2); CREATININE FOR GFR 1.28 MG/DL (0.70-1.30); GLOMERULAR FILTRATION RATE 59.1 (>42); PHOSPHORUS LEVEL 2.9 MG/DL (2.5-4.9); POTASSIUM SERUM 3.8 MEQ/L (3.5-5.1)
[2019-05-16] MEDS: LEVOTHYROXINE 50MCG TABLET (0.05MG) PO SCH (06:10)
--- NOTE | 2019-05-16 09:21 | REP ---
Clinical: Pericardial effusion. Technique: PA and lateral. Comparison: 05/15/2019. Findings: Pericardial drainage catheter again identified and relatively similar position. Dense opacity overlying the cardiac silhouette and left lower lobe are similar to prior examination. Trace right basilar atelectasis and small right pleural reaction may represent a new finding from prior examination. No obvious pneumothorax or pneumomediastinum. Skeletal structures are stable. Impression: Opacities overlying the cardiac silhouette and left lower lobe remain essentially stable. Subtle right basilar atelectasis and small right pleural reaction may represent new finding. Electronically Signed by Fred Simmons MD 05/16/2019 09:13 A
[2019-05-16] MEDS: MOM 30ML SUSPENSION UDC PO PRN (09:45)
[2019-05-16] MEDS: AMIODARONE 200 MG TAB (PACERONE) PO SCH ×4 (09:45→20:48)
[2019-05-16] MEDS: PANTOPRAZOLE 40MG TAB (PROTONIX) PO SCH (09:45)
[2019-05-16] MEDS: DOCUSATE SODIUM 100 MG CAP PO SCH ×2 (09:45→20:48)
[2019-05-16] MEDS: FOLIC ACID 1 MG TAB PO SCH (09:45)
[2019-05-16] MEDS: MULTIVITAMINS/MINERALS THERAP 1 TAB PO SCH (09:45)
[2019-05-16] MEDS: THIAMINE 100 MG TAB PO SCH (09:46)
--- NOTE | 2019-05-16 12:30 | IPN ---
DATE OF SERVICE: 05/16/2019 Mr. Pemberton feels so much better today. He can breathe easier. He does have some pain at the pericardial tube insertion site, but it is being well managed. His vital signs show a maximum temperature (Tmax) of 99.1 with a heart rate that is constant at 80 and paced with a respiratory rate of 18-26 without the use of accessory muscles who is 94% saturated on room air, and whose blood pressure is ranging between 119/80 to 94/69. His intake and output over the past 24 hours has been recorded as 2350 in and 705 out for a positivity of 1645 mL. He has put 80 mL out of the pericardial tube after the 1.5 liters were removed yesterday. He has put only 3 mL out in the last 12 hours. His weight today is 96.7 kg compared to 96.9 kg yesterday. On physical examination, he has equal breath sounds on either side. I hear some coarse rhonchi in both lungs. There is bronchial breath sounds in the left lower hemithorax. His cardiac examination is without murmurs or clicks, but I do think I hear a friction rub at the lower left sternal border. I cannot feel his point of maximal impulse (PMI). S1 and S2 are normal. Abdomen is soft, nontender. Bowel sounds are positive. There is no hepatomegaly. No costovertebral angle (CVA) tenderness. Extremities show 2+ pretibial edema. No calf tenderness. No differential swelling of the upper extremities. Skin is warm, dry, and perfused without cyanosis or mottling, including that of the nail beds and the knees. Neck is supple. There is no jugular venous distention. No subcutaneous emphysema. Trachea is midline. Mouth shows his mucous membranes to be pink and moist. Lips and commissures without lesions. There is no thrush. Eyes show his pupils to be equal and reactive. Extraocular movement intact. Sclerae anicteric. Neuro shows I-XII intact along with gross motor and gross sensation intact. Gait is not tested. Psychiatric shows him to awake, alert, oriented times three with appropriate mood and affect and conversational. His white count is 7.8 with a hemoglobin and hematocrit of 9.7 and 30.6. Platelet count is 576. Chemistries today show normal electrolytes with a BUN and creatinine of 39 and 1.28, a glucose of 92, and a calcium of 8.4, with an albumin of 2.8. His pericardial fluid has come back with a pH of 7.5, an LDH of 2161, and a total protein of 5. There were 3179 white cells and 1332 red cells. Differential shows 32% mononuclear lymphocytes and 27% PMNs. This does look like blood. His chest x-ray today shows his lung fully expanded to the chest wall. The diaphragm is obscured, however. Pericardial tube is anterior. He may have a pleural effusion on the lateral film versus compression. On a CT scan, he had a left pleural effusion which I opted not to drain and to leave that to medical therapy to reduce. IMPRESSION: 1. Large pericardial effusion. Probably impending tamponade. Relieved with a tube pericardiostomy. 2. Left pleural effusion. 3. Status post sudden cardiac arrest. 4. Coronary artery disease with stenting of the marginal coronary artery. 5. Status post automatic implantable cardioverter defibrillator (AICD) implantation. 6. Hypothyroidism. 7. Multiple rib fractures from his resuscitation. PLAN AND DISCUSSION: I will continue his tube for another [address] Leger would like to obtain an echocardiogram prior to removal of the tube, and I will do that tomorrow.
[2019-05-16] MEDS: bisoproloL fumarate 5 MG TAB PO SCH ×2 (13:15→21:59)
[2019-05-16] MEDS: FAMOTIDINE 20 MG TAB PO SCH (20:48)
[2019-05-17] VITALS (7 sets, daily range): BP systolic 97–118; BP diastolic 57–80
[2019-05-17] MEDS: LEVALBUTEROL 1.25 MG/0.5 ML CONCENTRATE NEB NEB SCH ×4 (01:03→20:17)
[2019-05-17] MEDS: PERCOCET 5MG/325MG TAB PO PRN (01:08)
[2019-05-17 04:28] LABS: BASO # 0.1 10^3/uL (0.0-0.2); BASO % 0.8 % (0.0-1.0); EOS # 0.2 10^3/uL (0.0-0.5); EOS % 3.1 % (0.0-3.0); HEMOGLOBIN 9.9 g/dl (13.5-17.5); LYMPH # 1.1 10^3/uL (1.5-5.0); LYMPH % 15.3 % (24.0-44.0); MEAN CORPUSCULAR HEMOGLOBIN 31.2 pg (27.0-33.0); MEAN CORPUSCULAR HGB CONC 31.9 g/dl (32.0-36.5); MEAN CORPUSCULAR VOLUME 97.8 fl (80.0-96.0); MONO # 0.8 10^3/uL (0.0-0.8); MONO % 10.4 % (0.0-5.0); PLATELET COUNT, AUTOMATED 599 10^3/uL (150-450); RED BLOOD COUNT 3.17 10^6/uL (4.30-6.10); WHITE BLOOD COUNT 7.2 10^3/uL (4.0-10.0)
[2019-05-17 04:44] LABS: ALBUMIN 2.8 GM/DL (3.2-5.2); CALCIUM LEVEL 8.3 MG/DL (8.8-10.2); CREATININE FOR GFR 1.34 MG/DL (0.70-1.30); GLOMERULAR FILTRATION RATE 56.1 (>42); PHOSPHORUS LEVEL 2.6 MG/DL (2.5-4.9); POTASSIUM SERUM 4.2 MEQ/L (3.5-5.1)
[2019-05-17] MEDS: LEVOTHYROXINE 50MCG TABLET (0.05MG) PO SCH (06:34)
[2019-05-17] MEDS: FOLIC ACID 1 MG TAB PO SCH (08:28)
[2019-05-17] MEDS: MULTIVITAMINS/MINERALS THERAP 1 TAB PO SCH (08:29)
[2019-05-17] MEDS: AMIODARONE 200 MG TAB (PACERONE) PO SCH ×2 (08:29→12:35)
[2019-05-17] MEDS: THIAMINE 100 MG TAB PO SCH (08:29)
[2019-05-17] MEDS: PANTOPRAZOLE 40MG TAB (PROTONIX) PO SCH (08:29)
[2019-05-17] MEDS: bisoproloL fumarate 5 MG TAB PO SCH ×2 (08:29→20:53)
[2019-05-17] MEDS: DOCUSATE SODIUM 100 MG CAP PO SCH ×2 (08:29→20:53)
--- NOTE | 2019-05-17 09:21 | REP ---
Clinical: Pericardial effusion. Technique: PA and lateral. Comparison: 05/16/2019. Findings: [id number] left pleural effusion, small right pleural effusion, and cardiac silhouette remain essentially unchanged. Pericardial drainage catheter in stable position. No pneumothorax. Impression: No significant change from prior examination. Electronically Signed by Fred Simmons MD 05/17/2019 09:12 A
[2019-05-17] MEDS ORDERED: DIGOXIN INJ 0.5 MG/2 ML AMP (J1160) IV ONE ×2 (12:15→17:00)
--- NOTE | 2019-05-17 13:53 | IPN ---
CARDIOLOGY PROGRESS NOTE DATE: 05/17/2019 SUBJECTIVE: The patient is happy to have his pericardial tube removed. His echocardiogram earlier today showed a dramatic reduction in his pericardial effusion with drainage procedure. On his current level of activity he has been feeling well without chest pain, shortness of breath or dizziness. OBJECTIVE: Overweight slightly barrel-chested elderly male lay comfortably virtually flat. Heart rate currently 90 beats per minute and paced. Blood pressure 100/57. Still has neck vein elevation and some dependent edema and sacral edema. PA and left lateral chest x-ray taken earlier today shows again obvious cardiomegaly with left pleural effusion, but otherwise clear lung burks. Bi-v ICD in stable position. 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 Based on his echocardiographic findings today with significantly dilated left atrium, the likelihood of him successfully being restored to a sinus mechanism is virtually zero. BLOOD WORK: Hemoglobin today 9.9, normal white blood cell count and platelet count remained elevated at 599,000. His chemistry confirmed electrolyte balance with BUN essentially similar to yesterday at 33, creatinine 1.34 slightly up from yesterday. Fasting glucose 91, albumin 2.8. His pericardial fluid did show red blood cells and white blood cells with albumin of 2.5, elevated LDH, negative amylase, and glucose of 31. A culture of his pericardial fluid was negative after 48 hours. IMPRESSION/PLAN: 1. Heart failure (systolic and diastolic/acute on chronic): At this point I believe he is at his functional dry weight. His echocardiogram shows minimal improvement in left ventricular systolic function following drainage of his pericardial effusion. His mean left atrial pressure today was lower than on admission following diuresis. Blood pressure remains soft with azotemia as mentioned. At this point, he is on bisoprolol but vasodilator therapy and diuretic therapy are on hold at this time. OLGA inhibitor, angiotensin receptor val Entresto may be challenging in light of his renal insufficiency. 2. Persistent atrial fibrillation: Given the magnitude of his left atrial size, it is unlikely we will be able to restore a sinus mechanism here. His amiodarone loading has been discontinued in favor of ongoing bisoprolol and digoxin combination to control his ventricular response and facilitate biventricular stimulation with his device. Oral anticoagulation will be resumed tomorrow, Eliquis 5 mg b.i.d. 3. Pericardial effusion: Believed to be a traumatic collection following his chest compression during his cardiac arrest and his combination anticoagulant and antiplatelet therapies. We certainly appreciate Dr. Bates's help in draining this fluid. We are cautiously optimistic that this point it will not return. 4. Dilated cardiomyopathy: Suspected to have a combination of both burnout hypertension and alcohol as underlying etiologies. As mentioned, we are hoping to augment cardiac resynchronization therapy using combination bisoprolol and digoxin. Vasodilator therapy and diuretic are presently on hold. We have emphasized the crucial importance of avoiding alcohol. 5. Post cardiac arrest, bi-V ICD in situ: Has been free of any complex ventricular arrhythmia. 6. CAD ([place] vessel)/post OM stenting: Has been free of any anginal discomforts. Currently will be on bisoprolol and we intend to resume Plavix and Eliquis tomorrow. 7. Hypothyroidism: Currently on replacement therapy. This problem is suspected to be due to amiodarone. With our discontinuing this agent this problem may well improve. I believe he is close to optimal management, but his prognosis remains very guarded. Still has severe pulmonary hypertension and right heart failure. I am hoping he will be able to be transferred to the progressive care unit and begin low-level ambulation with the help of the cardiac rehabilitation program.
--- NOTE | 2019-05-17 14:07 | IPN ---
DATE: 05/17/2019 Mr. Pemberton is doing relatively well. He is breathing well. His pericardial tube has had minimal output and I will remove it today. His pain is being well controlled. His vital signs show a T-max of 98.9 with a heart rate that ranges between 80-90 in atrial fibrillation with a respiratory rate of 18-20 without the use of accessory muscles, who is 96% saturated on room air, whose blood pressure is ranging between 97/52 to 103/67. His intake and output over the past 24 hours has been 1180 in and 990 out for a positivity of 190 mL. He has put 10 mL out the pericardial tube. Weight today is 97.7 kilos compared to 97.8 kilos yesterday. On physical examination today, his lungs show equal breath sounds on either side. He does have a dull percussion note at the left base with E-to-A egophony at the left base. I do not hear wheezes, rhonchi or rales, however. Cardiac exam shows an irregular rate and rhythm without murmurs, clicks, gallops, and in particular I do not hear pericardial friction rub. I cannot feel his point of maximal impulse (PMI). S1 and S2 are normal. Abdomen is soft and nontender. Bowel sounds are positive. There is no hepatomegaly. No costovertebral angle (CVA) tenderness. Extremities show trace pretibial edema. No calf tenderness. No differential swelling of the upper extremities. Skin is warm, dry and perfused without cyanosis or mottling including that of the nail beds and the knees. Neck is supple. There is no jugular venous distention. No subcutaneous emphysema. Trachea is midline. Mouth shows his mucous membranes to be pink and moist. Lips and commissures are without lesions. There is no thrush. Eyes show his pupils to be equal and reactive. Extraocular motors are intact. Sclera nonicteric. Neuro shows II through XII intact, along with gross motor and gross sensation intact. Gait is not tested. Psychiatric shows him to be awake and alert, oriented times three with appropriate mood and affect, and conversational. His chest x-ray today shows his lung fully expanded to the chest wall, but he does have a pleural effusion on the left side with the left diaphragm being obscured. Pericardial tube is in good place anteriorly. His white count today is 7.2, hemoglobin and hematocrit of 9.9 and 31.0 with a platelet count of 599 and stable. Differential shows 70% neutrophils, 15% lymphocytes, 10% monocytes. There are no immature forms. No toxic granulations. His electrolytes are normal with a BUN and creatinine that has slightly bumped to 33 and 1.34 from 39 and 1.28 yesterday. Glucose is 91 with a calcium of 8.3 and a phosphorous of 2.6. Albumin is 2.8. I discussed his pericardial fluid yesterday looking like blood. IMPRESSION: 1. Large pericardial effusion relieved with a tube pericardiostomy. 2. Left pleural effusion continuing. 3. Status post sudden and cardiac arrest. 4. Coronary artery disease (CAD) with stenting of the marginal coronary artery. 5. Status post AICD implantation. 6. Hypothyroidism. 7. Multiple rib fractures from his resuscitation. PLAN AND DISCUSSION: I will discontinue his chest tube today. I will leave his medical care in the hands of Dr. Leger. If medications cannot relieve his pleural effusion or if he becomes symptomatic, I will drain it. I suspect it is also somewhat bloody and it may be osmotic pleural effusion that will need to be drained. I will continue to follow the patient with chest x-rays.
--- NOTE | 2019-05-17 14:11 | ECHO ---
DATE OF PROCEDURE: 05/17/2019 DATE OF : 1950 AGE: 68 GENDER: Male HEIGHT: 70 inches WEIGHT: 214 pounds BODY SURFACE AREA: 2.16 m2 INPATIENT: INTENSIVE CARE UNIT - Room 3203 REFERRING PHYSICIAN: Dr. Meliton Leger INDICATION: Post pericardiocentesis drainage. Ongoing heart failure. Persistent atrial fibrillation. MEASUREMENTS 2-D Measurements: RV: 5.0 cm LV: 4.9 cm Septum: 1.5 cm Posterior wall: 1.5 cm Aortic root: 3.6 cm Ascending aorta: 3.9 cm LA: 5.2 cm LVEF: 45% Doppler Measurements: AV: 0.87 m/s LVOT: 0.5 m/s LVOT diameter: 2.5 cm MV - E 78 Early mitral deceleration time: 151 ms E prime medial: 7.8 E prime lateral: 5.9 Average E/E prime ratio: 11.4/PCWP: 16 mmHg PV: 0.75 m/s Pulmonary artery acceleration time: 75 ms RVSP: 55 mmHg IVC: 2.4 cm COMMENTS: Underlying atrial fibrillation with biventricular paced QRS complexes alternating with spontaneous complexes with left bundle branch block pattern. Moderate concentric left ventricle hypertrophy with ongoing septal wall motion abnormality related to intermittent spontaneous QRS complexes with left bundle branch block, but also right ventricular pressure overload. At least mild to moderate impairment of global resting left ventricular systolic function. Prominently dilated left atrium with current estimated mean left atrial pressure mildly increased. Moderately dilated right heart chambers with hypokinesis of the right ventricular free wall and Doppler evidence of moderately severe pulmonary hypertension. At least mildly dilated inferior vena cava with virtually absent respiratory collapse in keeping with elevated central venous pressure/heart failure. Three equal size aortic cusps with at least mild to moderate cusp thickening. Adequate cusp separation, but premature cusp closure in keeping with reduced forward stroke volume. Mild degenerative changes of his mitral valvular apparatus with "low flow" appearance to leaflet excursion, but no posterior systolic buckling. No functional valvular abnormality. Normal appearing tricuspid valve with at least mild to moderate insufficiency. Pacing leads could be visualized traversing right heart structures, but no separate intracardiac mass. Minuscule persistent pericardial effusion. Dramatic reduction in pericardial fluid from his prior examination May 15, 2019. Only marginal improvement in his left ventricular systolic performance and reduction in his mean left atrial pressure. Persistent at least moderate sized left pleural effusion.
[2019-05-17] MEDS: FAMOTIDINE 20 MG TAB PO SCH (20:53)
[2019-05-18] VITALS: BP 125/85
[2019-05-18] MEDS: LEVALBUTEROL 1.25 MG/0.5 ML CONCENTRATE NEB NEB SCH ×4 (02:25→20:44)
[2019-05-18 04:00] VITALS: BP 104/56
[2019-05-18] MEDS: LEVOTHYROXINE 50MCG TABLET (0.05MG) PO SCH (05:26)
[2019-05-18 05:35] LABS: BASO # 0.1 10^3/uL (0.0-0.2); BASO % 0.7 % (0.0-1.0); EOS # 0.2 10^3/uL (0.0-0.5); EOS % 3.4 % (0.0-3.0); HEMATOCRIT 30.7 % (42.0-52.0); HEMOGLOBIN 9.8 g/dl (13.5-17.5); LYMPH # 0.9 10^3/uL (1.5-5.0); LYMPH % 13.1 % (24.0-44.0); MEAN CORPUSCULAR HEMOGLOBIN 31.3 pg (27.0-33.0); MEAN CORPUSCULAR HGB CONC 31.9 g/dl (32.0-36.5); MEAN CORPUSCULAR VOLUME 98.1 fl (80.0-96.0); MONO # 0.8 10^3/uL (0.0-0.8); MONO % 11.3 % (0.0-5.0); NEUTROPHILS # 4.8 10^3/uL (1.5-8.5); NEUTROPHILS % 71.1 % (36.0-66.0); PLATELET COUNT, AUTOMATED 577 10^3/uL (150-450); RED BLOOD COUNT 3.13 10^6/uL (4.30-6.10); WHITE BLOOD COUNT 6.7 10^3/uL (4.0-10.0)
[2019-05-18 06:01] LABS: ALBUMIN 2.8 GM/DL (3.2-5.2); BILIRUBIN,TOTAL 0.5 MG/DL (0.2-1.0); CALCIUM LEVEL 8.3 MG/DL (8.8-10.2); CREATININE FOR GFR 1.3 MG/DL (0.70-1.30); GLOMERULAR FILTRATION RATE 58.1 (>42); POTASSIUM SERUM 4.8 MEQ/L (3.5-5.1); TOTAL PROTEIN 6.5 GM/DL (6.4-8.2)
[2019-05-18 08:00] VITALS: BP 137/70
--- NOTE | 2019-05-18 08:01 | ECGEPIP ---
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
--- NOTE | 2019-05-18 08:08 | REP ---
Clinical: Pericardial effusion. Technique: PA and lateral. Comparison: 05/17/2019. Findings: Pericardial drainage catheter has been removed. Moderate left lower lobe opacity and dense opacity to the cardiac silhouette remains unchanged. Subtle right basilar atelectasis and possible small right pleural effusion again noted. No new acute process identified. Impression: Pericardial drainage catheter removed. Mediastinal and pleuroparenchymal findings remain stable. No new acute process identified. Electronically Signed by Fred Simmons MD 05/18/2019 08:00 A
[2019-05-18] MEDS: FOLIC ACID 1 MG TAB PO SCH (08:35)
[2019-05-18] MEDS: DOCUSATE SODIUM 100 MG CAP PO SCH ×2 (08:36→21:06)
[2019-05-18] MEDS: THIAMINE 100 MG TAB PO SCH (08:36)
[2019-05-18] MEDS: MULTIVITAMINS/MINERALS THERAP 1 TAB PO SCH (08:36)
[2019-05-18] MEDS: PANTOPRAZOLE 40MG TAB (PROTONIX) PO SCH (08:36)
[2019-05-18] MEDS: CLOPIDOGREL 75 MG TAB PO SCH (08:36)
[2019-05-18] MEDS: bisoproloL fumarate 5 MG TAB PO SCH (08:37)
[2019-05-18] MEDS ORDERED: DIGOXIN 0.0625MG PER 1/2TABLET PO SCH (09:00)
[2019-05-18] MEDS ORDERED: DIGOXIN 0.125 MG TAB PO SCH (09:00)
[2019-05-18] MEDS ORDERED: APIXABAN 2.5 MG TAB (ELIQUIS) PO SCH (09:00)
[2019-05-18] MEDS ORDERED: SERTRALINE HCL 25 MG TABLET PO ONE (11:00)
[2019-05-18] MEDS ORDERED: LORazepam 1 MG TAB PO ONE (11:00)
[2019-05-18 12:00] VITALS: BP 124/83
--- NOTE | 2019-05-18 12:37 | IPN ---
DATE OF SERVICE: 05/18/2019 Mr. Pemberton is feeling a little bit anxious today. However, his pain is well controlled, and he is sitting up in a chair. His vital signs show a maximum temperature (Tmax) 98.4 with a heart rate that ranges between 119 and 80 in atrial fibrillation with a respiratory rate that is constant at 18 who is 98% to 95% saturated on room air and whose blood pressure is ranging between 104/56 to 137/70. His intake and output over the past 24 hours has been recorded as 1050 in and 853 out for a positivity of 197 mL. His pericardial tube was removed yesterday. He weighs 95.8 kg today compared to 96.8 kg yesterday. On physical examination, he has broncophany, E-to-A egophony in the left lower hemithorax. Percussion note is full to the diaphragm, however. Right side shows some inspiratory rales at the very end of inspiration which are fine and crackling. Cardiac examination shows distant heart sounds but without murmurs, clicks, gallops, and in particular I do not hear a pericardial friction rub. Abdomen is soft and nontender. Bowel sounds are positive. There is no hepatomegaly. No costovertebral angle (CVA) tenderness. Extremities show 1+ pretibial edema but again improved over yesterday. There is no calf tenderness. No differential swelling of the upper extremities. Skin is warm, dry, and perfused without cyanosis or mottling including that of the nail beds and the knees. Neck is supple. There is no jugular venous distention. No subcutaneous emphysema. Trachea is midline. Mouth shows his mucous membranes to be pink and moist. Lips and commissures without lesions. There is no thrush. Eyes show his pupils to be equal and reactive. Extraocular motors intact. Sclera anicteric. Neuro shows II-XII intact, along with gross motor and gross sensation intact. Gait is not tested. Psychiatric shows him to be awake and alert, oriented times three with appropriate mood and affect and conversational. His white count today is 6.7 with a hemoglobin and hematocrit of 9.8 and 30.7 unchanged from yesterday with a platelet count of 577 and stable. Differential shows 71% neutrophils, 13% lymphocytes, 11% monocytes. There are no immature forms. No toxic granulations. His electrolytes show a marginally high total CO2 of 34 with a BUN and creatinine of 27 and 1.3 improved from 33 and 1.34 yesterday. Glucose is 90 with a calcium of 8.3. AST and ALT are normal and albumin is 2.8. His chest x-ray today shows a large cardiac silhouette. The lateral film looks as though there is a compressed or infiltrative process in the lower hemithorax on the left side. This corresponds to the bronchophony and E-A egophony seem on physical examination. I do see some air bronchograms on the lateral film additionally. His echocardiogram yesterday showed resolution of the pericardial effusion. He still has a decreased ejection fraction between 30% and 40%. IMPRESSION: 1. Large pericardial effusion relieved with a tube pericardiostomy. Now resolved. 2. Left pleural effusion. Unknown status. 3. Status post sudden and cardiac arrest. 4. Coronary artery disease with stenting of the marginal coronary artery. 5. Status post automatic implantable cardioverter-defibrillator (AICD) implantation. 6. Hypothyroidism. 7. Multiple rib fractures. PLAN AND DISCUSSION: As the pericardial effusion is now resolved. I will withdraw from the case. I am hoping that the pleural effusion can be resolved with medical therapy and diuresis. His renal function seems to have improved. He is now on a fluid restriction.
--- NOTE | 2019-05-18 12:52 | MHIPNPDOC ---
[facility] Progress Note Progress Note DATE OF SERVICE: 05/18/19 This short story writer was contacted this morning regarding patient Esa Pemberton who was seen on 05/13/[address] Barboza who recommended antidepressants but patient declined. the patient, according to Dr. Barboza, doesn't meet criteria for admission to [facility] and [facility] staff, who called this morning said the patient was not suicidal, not homicidal, not psychotic but he was extremely anxious. According to her , this has been going on for some days, he was still very anxious wne he was at PCU. She said this has been going on but there are days when is really bad. This short story writer recommended to give him 1 mg. of Ativan today, a one time dose and to have him on a 1 mg PO daily PRN but that it would be better if the patient accepted taking a small dose of Zoloft 25 mgs PO daily. He has accepted taking it and hopefully he will have a good response to it, however, I recommend to follow him closely ( with ECG's) because SSRI's tend to increase QT and QTC intervals. Vital Signs Vital Signs Date Time Temp Pulse Resp B/P (MAP) Pulse Ox O2 Delivery O2 Flow Rate FiO2 05/18/19 12:00 98.2 82 18 124/83 (97) 95 Room Air 05/15/19 20:00 1.0 Laboratory Data 24H Labs Laboratory Tests 2 05/18/19 05:18: Immature Granulocyte % (Auto) 0.4, Neutrophils (%) (Auto) 71.1H, Lymphocytes (%) (Auto) 13.1L, Monocytes (%) (Auto) 11.3H, Eosinophils (%) (Auto) 3.4H, Basophils (%) (Auto) 0.7, Neutrophils # (Auto) 4.8, Lymphocytes # (Auto) 0.9L, Monocytes # (Auto) 0.8, Eosinophils # (Auto) 0.2, Basophils # (Auto) 0.1, Nucleated Red Blood Cells % (auto) 0.0, Anion Gap 0L, Glomerular Filtration Rate 58.1, Calcium Level 8.3L, Total Bilirubin 0.5, Aspartate Amino Transf (AST/SGOT) 18, Alanine Aminotransferase (ALT/SGPT) 24, Alkaline Phosphatase 106, PK-Bak-L-Type Natriuretic Peptide 6330H, Total Protein 6.5, Albumin 2.8L, Albumin/Globulin Ratio 0.76L CBC/BMP Laboratory Tests 05/18/19 05:18 Current Medications Current Medications Medications (Trade) Dose Ordered Sig/Jose Route PRN Reason Start Time Stop Time Status Last Admin Dose Admin Acetaminophen (Tylenol Tab) 650 mg Q4H PRN PO PAIN OR FEVER 05/12/19 14:30 Acetaminophen/ Hydrocodone Bitart ([place], Anexsia 5/325) 1 tab Q3HP PRN PO MILD PAIN (PS 1-4) 05/15/19 14:00 05/17/19 16:06 Amiodarone HCl (Cordarone I.v.) 150 mg STAT STAT IVP 05/12/19 14:36 05/12/19 14:37 Cancel Amiodarone HCl ([place], Cordarone) 200 mg QID PO 05/12/19 21:00 05/17/19 12:47 DC 05/17/19 12:35 Amiodarone HCl 150 mg/IV Miscellaneous Supplies 100 ml @ 600 mls/hr STAT STAT IV 05/12/19 17:46 05/12/19 17:55 DC 05/12/19 18:00 Amiodarone HCl 150 mg/IV Miscellaneous Supplies 100 ml @ 600 mls/hr STAT STAT IV 05/13/19 19:44 05/13/19 19:53 DC 05/13/19 20:11 Apixaban (Eliquis) 2.5 mg BID PO 05/18/19 09:00 05/18/19 12:08 DC 05/18/19 08:36 Apixaban (Eliquis) 5 mg BID PO 05/12/19 21:00 05/17/19 14:35 DC 05/14/19 08:08 Apixaban (Eliquis) 5 mg BID PO 05/18/19 21:00 Atorvastatin Calcium (Lipitor) 20 mg QHS PO 05/12/19 21:00 05/12/19 15:31 DC Bisacodyl (Dulcolax Suppository) 10 mg Q4HP PRN MI CONSTIPATION 05/15/19 14:00 Bisoprolol Fumarate (Zebeta) 2.5 mg QID PO 05/12/19 17:00 05/14/19 19:34 DC 05/13/19 12:05 Bisoprolol Fumarate (Zebeta) 5 mg BID PO 05/14/19 21:00 05/18/19 12:02 DC 05/18/19 08:37 Clopidogrel Bisulfate (PLAVix) 75 mg DAILY PO 05/13/19 09:00 05/13/19 17:34 DC 05/13/19 08:41 Clopidogrel Bisulfate (PLAVix) 75 mg DAILY PO 05/18/19 09:00 05/18/19 08:36 Digoxin (Lanoxin) 0.0625 mg DAILY PO 05/18/19 09:00 05/17/19 12:48 DC Digoxin (Lanoxin) 0.125 mg DAILY PO 05/18/19 09:00 05/18/19 12:06 DC 05/18/19 08:36 Digoxin (Lanoxin) 0.25 mg DAILY PO 05/19/19 09:00 Docusate Sodium (Colace) 100 mg BID PO 05/12/19 21:00 05/18/19 08:36 Famotidine (Pepcid) 40 mg QHS PO 05/12/19 21:00 05/17/19 20:53 Folic Acid (Folic Acid) 1 mg DAILY PO 05/13/19 09:00 05/18/19 08:35 Furosemide (LASIX injection) 20 mg Q4H IV 05/12/19 16:00 05/14/19 19:33 DC 05/14/19 12:39 Home Med (Med Rec Complete!) ASDIRECTED XX 05/12/19 16:15 05/12/19 16:05 DC Influenza Virus Vaccine (Flublok Quad(Egg-Free)18y&Older Influenza) 0.5 ml ASDIRECTED IM 05/13/19 01:45 Levalbuterol HCl (Xopenex Neb) 1.25 mg Q2HP PRN NEB WHEEZING 05/15/19 14:00 Levalbuterol HCl (Xopenex Neb) 1.25 mg RQ6H NEB 05/15/19 14:00 05/18/19 07:08 Levothyroxine Sodium (Synthroid) 50 mcg DAILY@06 PO 05/13/19 22:00 05/18/19 05:26 Lorazepam (Ativan) 1 mg DAILYPRN PRN PO ANXIETY 05/19/19 00:00 Magnesium Hydroxide (Milk Of Magnesia) 30 ml DAILY PRN PO CONSTIPATION 05/12/19 14:30 05/16/19 09:45 Metoprolol Succinate (TopROL XL) 100 mg DAILY PO 05/18/19 14:00 Midazolam HCl (Versed) 2 mg STAT STAT IV 05/15/19 14:04 05/15/19 14:08 DC 05/15/19 14:04 Multivitamins (Theragram-M) 1 tab DAILY PO 05/13/19 09:00 05/18/19 08:36 Ondansetron HCl (ZOFRAN INJection) 4 mg Q4HP PRN IV NAUSEA 05/15/19 14:00 Oxycodone/ Acetaminophen (Percocet 5mg/ 325mg Tablet) 1 tab Q4HP PRN PO MODERATE PAIN (PS 5-7) 05/15/19 14:00 05/17/19 01:08 Oxycodone/ Acetaminophen (Percocet 5mg/ 325mg Tablet) 2 tab Q4HP PRN PO SEVERE PAIN (PS 8-10) 05/15/19 14:00 Pantoprazole Sodium (Protonix) 40 mg DAILY PO 05/16/19 09:00 05/18/19 08:36 Pneumococcal Polyvalent Vaccine (Pneumovax 23) 0.5 ml ASDIRECTED IM 05/13/19 01:45 Sacubitril/ Valsartan (Entresto 24-26 Mg) 1 tab QHS PO 05/18/19 21:00 Sertraline HCl (Zoloft) 25 mg DAILY PO 05/19/19 09:00 Spironolactone (Aldactone) 12.5 mg DAILY PO 05/12/19 09:00 05/14/19 19:33 DC 05/14/19 08:09 Thiamine HCl (Thiamine HCl) 100 mg DAILY PO 05/13/19 09:00 05/18/19 08:36 Allergies Coded Allergies: No Known Allergies (Unverified , 03/21/14) BINH GANT MD May 18, 2019 12:51
[2019-05-18] MEDS: METOPROLOL SUCC (TopROL XL) 100MG *XL* TAB PO SCH (14:51)
[2019-05-18 16:00] VITALS: BP 126/75
[2019-05-18] MEDS: TORSEMIDE 20 MG TAB PO SCH (16:51)
[2019-05-18 20:00] VITALS: BP 110/78
[2019-05-18] MEDS ORDERED: ENTRESTO 24-26MG TABLET (SACUBITRIL/VALSARTAN) PO SCH (21:00)
[2019-05-18] MEDS: ENTRESTO 24-26MG TABLET (SACUBITRIL/VALSARTAN) PO SCH (21:06)
[2019-05-18] MEDS: APIXABAN 5 MG TAB (ELIQUIS) PO SCH (21:06)
[2019-05-18] MEDS: FAMOTIDINE 20 MG TAB PO SCH (21:06)
--- NOTE | 2019-05-18 23:20 | IPN ---
CARDIOLOGY PROGRESS NOTE: DATE: 05/18/2019 TIME: 02:57 PM SUBJECTIVE: Patient reports improvement in exertional dyspnea. He reports he still has exertional dyspnea with low levels of activity such as just walking from his bed to the bathroom. No orthopnea or paroxysmal nocturnal dyspnea (PND). He is still aware that he is having ongoing leg and ankle edema bilaterally. No chest pain or chest discomfort. PHYSICAL EXAMINATION: Pleasant man who appears his chronologic age. Mildly obese. Weight 95.8 kg. Temperature 98.2, pulse 82 (regular), respiratory rate 18, blood pressure 124/82, oxygen saturation 95% on room air. Jugular venous pulsations were the angle of the jaw with the patient sitting up 90 degrees (at least 20 cm). First and second heart sounds were reduced in intensity. No S3 or murmurs appreciated. ICD in situ left pectoral region. Abdomen is soft, nontender, with normal bowel sounds. Normal mood and affect. Alert and oriented times three. 5 mm of pitting edema at mid tibial level bilaterally. Abdomen is soft and nontender with normal bowel sounds. Patient was net positive 197 mL for the 24 hours of 05/17. Weight is decreased 1 kg in comparison to yesterday. LABORATORY: Laboratory work 05/18/2019 was reviewed: Sodium 140, potassium 4.8, chloride 106, CO2 34, BUN 27, creatinine 1.30. Estimated GFR 58.1, glucose 90, total bilirubin 0.5. AST normal, ALT normal. Alkaline phosphatase normal. NT-ProBNP 6330. Total protein 6.5, albumin 2.8. TSH from 05/12/2019 was elevated at 13.4. ASSESSMENT AND PLAN: 1. Paroxysmal atrial fibrillation. Rate controlled with the patient being paced at 80 beats per minute. I have increased digoxin to a dosage of 0.25 mg daily because the patient has normal renal function and is no longer on amiodarone. I have switched the patient from bisoprolol to metoprolol succinate 100 mg daily. Dosage of Eliquis was increased to 5 mg twice a day because the patient weighs over 60 kg, is less than 85 years old, and has normal renal function. 2. Dilated cardiomyopathy. Base rate of the pacemaker was changed from DDIR 80 to VVIR 70. Entresto will be increased from 24-26 mg at bedtime to 24-26 mg twice a day. Bisoprolol will be changed to metoprolol succinate 100 mg daily. Digoxin will be increased to 0.25 mg daily. If the patient is currently NYHA functional class III and is decompensated on examination, I will add torsemide by mouth (p.o.) beginning at 20 mg twice a day. I am going to hold off on adding spironolactone as I plan to go up on the dose of Entresto. At some point I would like to see the patient on spironolactone as well. As noted above, a base rate of the pacing was decreased from 80 down to 70 BPM. My hope is to eventually if the patient tolerates it, titrate downward the base rate to as low as 50 BPM. 3. Heart failure (acute on chronic), systolic and diastolic). As dilated cardiomyopathy category above. 4. Coronary artery disease (CAD), status post percutaneous coronary intervention 05/03/2019 of the third obtuse marginal. No anginal symptoms. Continue clopidogrel. He is on aspirin because he is on Eliquis. As noted above, he will be changed from bisoprolol to metoprolol succinate. Continue valsartan, but at a higher dose (via Entresto). 5. Pericardial effusion. The patient is status post tube pericardiostomy with pericardiocentesis under echo control performed by Dr. Maurice Bates 05/15/2019. A followup echocardiogram Doppler 05/17/2019 reported miniscule persistent pericardial effusion. Stable. 6. Left bundle branch block. Status post biventricular ICD in situ ([employer]). Mostly biventricular paced at 80 BPM currently. 7. Status post [employer] biventricular ICD in situ. Currently in atrial fibrillation. Currently DDIR 80. I reprogrammed the device to VVIR 70 because of the patient's heart failure. 8. Systemic hypertension. Blood pressure presently well controlled. As noted above, I will increase the dose of valsartan (via Entresto). As noted above, I will add torsemide. As noted above, he will be switched from bisoprolol to metoprolol succinate. 9. Hypothyroidism. Patient is currently on levothyroxine 50 mcg daily. Continue the same. 10. Obesity. Patient will be placed on a dietary approaches to stop hypertension (DASH) diet.
[2019-05-19] VITALS: BP 123/75
[2019-05-19] MEDS ORDERED: LORazepam 1 MG TAB PO PRN
[2019-05-19] MEDS: LEVALBUTEROL 1.25 MG/0.5 ML CONCENTRATE NEB NEB SCH ×4 (01:51→20:10)
[2019-05-19 04:00] VITALS: BP 108/72
[2019-05-19 05:29] LABS: BASO % 0.7 % (0.0-1.0); EOS # 0.2 10^3/uL (0.0-0.5); EOS % 2.6 % (0.0-3.0); HEMOGLOBIN 10.2 g/dl (13.5-17.5); LYMPH % 16.6 % (24.0-44.0); MEAN CORPUSCULAR HEMOGLOBIN 31.4 pg (27.0-33.0); MEAN CORPUSCULAR HGB CONC 32.9 g/dl (32.0-36.5); MEAN CORPUSCULAR VOLUME 95.4 fl (80.0-96.0); MONO # 0.6 10^3/uL (0.0-0.8); MONO % 9.9 % (0.0-5.0); NEUTROPHILS % 69.9 % (36.0-66.0); PLATELET COUNT, AUTOMATED 569 10^3/uL (150-450); RED BLOOD COUNT 3.25 10^6/uL (4.30-6.10); WHITE BLOOD COUNT 5.7 10^3/uL (4.0-10.0)
[2019-05-19] MEDS: LEVOTHYROXINE 50MCG TABLET (0.05MG) PO SCH (05:39)
[2019-05-19 05:51] LABS: ALBUMIN 2.8 GM/DL (3.2-5.2); BLOOD UREA NITROGEN 21 MG/DL (7-18); CALCIUM LEVEL 8.2 MG/DL (8.8-10.2); CARBON DIOXIDE LEVEL 28 MEQ/L (21-32); CHLORIDE LEVEL 105 MEQ/L (98-107); CREATININE FOR GFR 1.26 MG/DL (0.70-1.30); GLOMERULAR FILTRATION RATE > 60.0 (>42); GLUCOSE, FASTING 102 MG/DL (70-100); PHOSPHORUS LEVEL 2.8 MG/DL (2.5-4.9); SODIUM LEVEL 138 MEQ/L (136-145)
[2019-05-19 08:00] VITALS: BP 135/85
[2019-05-19] MEDS: FOLIC ACID 1 MG TAB PO SCH (09:21)
[2019-05-19] MEDS: PANTOPRAZOLE 40MG TAB (PROTONIX) PO SCH (09:21)
[2019-05-19] MEDS: THIAMINE 100 MG TAB PO SCH (09:21)
[2019-05-19] MEDS: DOCUSATE SODIUM 100 MG CAP PO SCH ×2 (09:22→21:16)
[2019-05-19] MEDS: TORSEMIDE 20 MG TAB PO SCH ×2 (09:22→17:08)
[2019-05-19] MEDS: METOPROLOL SUCC (TopROL XL) 100MG *XL* TAB PO SCH (09:22)
[2019-05-19] MEDS: CLOPIDOGREL 75 MG TAB PO SCH (09:22)
[2019-05-19] MEDS: ENTRESTO 24-26MG TABLET (SACUBITRIL/VALSARTAN) PO SCH ×2 (09:22→21:16)
[2019-05-19] MEDS: SERTRALINE HCL 25 MG TABLET PO SCH (09:22)
[2019-05-19] MEDS: APIXABAN 5 MG TAB (ELIQUIS) PO SCH ×2 (09:22→21:16)
[2019-05-19] MEDS: DIGOXIN 0.25 MG TAB PO SCH (09:23)
[2019-05-19] MEDS: MULTIVITAMINS/MINERALS THERAP 1 TAB PO SCH (09:23)
--- NOTE | 2019-05-19 09:51 | REP ---
Clinical: Pericardial effusion. Technique: PA and lateral. Comparison: 05/18/2019. Findings: Dense opacification of the cardiac silhouette is similar to prior examination and suggests continued pericardial effusion. Moderate left and small right pleural effusions with associated lower lobe consolidation/atelectasis are similar to prior examination. No pneumothorax. Skeletal structures intact. Impression: No significant change from prior examination with continued evidence for pericardial effusion and pleural effusions along with bibasilar atelectasis. Electronically Signed by Fred Simmons MD 05/19/2019 08:14 A
[2019-05-19 12:00] VITALS: BP 99/56
[2019-05-19 16:00] VITALS: BP 115/58
--- NOTE | 2019-05-19 17:47 | IPN ---
DATE: 05/19/2019 at 04:58 p.m. SUBJECTIVE: The patient reports less edema in his legs but still has some. He reports less exertional dyspnea. He is getting short of breath with low levels of activity such as walking short distances in the hallways in the progressive care unit. No orthopnea or paroxysmal nocturnal dyspnea (PND). No chest pain or chest discomfort. PHYSICAL EXAMINATION: Temperature 97.3, pulse 67, blood pressure 115/68, oxygen saturation 93% on room air. Weight 93.3 kg representing a 2.5 kg decrease in comparison to the weight recorded yesterday. Net negative 1895 mL through the 24 hours of 05/18/2019. Jugular venous pulsations were at 8 cm, 2-3 mm of pitting edema at the mid tibia level bilaterally. First and second heart sounds were mildly diminished. No S3. No murmurs appreciated. Respiratory expansion effort was good. No crackles or wheezes. Abdomen is soft and nontender with normal bowel sounds. LABORATORY DATA: 05/19/2019 was reviewed: Sodium 138, potassium 4.0, chloride 105, CO2 28, BUN 5, creatinine 1.26, estimated GFR greater than 60, glucose 102, albumin 2.8. ASSESSMENT AND PLAN: 1. Paroxysmal atrial fibrillation. Rate control approach. Heart rate controlled. Continue the present therapy which consists of Eliquis, metoprolol succinate, digoxin. 2. Dilated cardiomyopathy. The patient remains decompensated but is making good progress with improvement in renal function, decrease in weight, and net negative fluid balance and maintaining a good blood pressure. At this point, I will continue with the current therapy for heart failure which consists of digoxin, metoprolol succinate, Entresto, and torsemide 20 mg by mouth twice a day. 3. Heart failure (acute on chronic, systolic and diastolic). As per dilated cardiomyopathy category above. 4. Coronary artery disease (CAD), status post percutaneous coronary intervention with stenting of the third obtuse marginal 05/03/2019. The patient remains angina free. Continue clopidogrel. He is not on aspirin because he has Eliquis for atrial fibrillation. Continue metoprolol succinate and valsartan (via Entresto). 5. Pericardial effusion. The patient is status post pericardiocentesis. Stable. 6. Left bundle branch block, status post biventricular implantable cardioverter defibrillator (ICD) in situ. Stable. 7. Status post ICD in situ. Currently set to VVIR at 70. Stable. 8. Systemic hypertension. Blood pressure controlled. Continue valsartan (via Entresto) and torsemide and metoprolol succinate.
[2019-05-19 20:00] VITALS: BP 110/56
[2019-05-19] MEDS: FAMOTIDINE 20 MG TAB PO SCH (21:16)
[2019-05-20] VITALS (7 sets, daily range): BP systolic 92–113; BP diastolic 51–67
[2019-05-20] MEDS: LEVALBUTEROL 1.25 MG/0.5 ML CONCENTRATE NEB NEB SCH ×4 (02:00→20:53)
[2019-05-20 05:06] LABS: BASO # 0.1 10^3/uL (0.0-0.2); EOS # 0.1 10^3/uL (0.0-0.5); EOS % 2.2 % (0.0-3.0); HEMATOCRIT 33.7 % (42.0-52.0); HEMOGLOBIN 11.2 g/dl (13.5-17.5); LYMPH # 1.3 10^3/uL (1.5-5.0); LYMPH % 21.5 % (24.0-44.0); MEAN CORPUSCULAR HEMOGLOBIN 31.6 pg (27.0-33.0); MEAN CORPUSCULAR HGB CONC 33.2 g/dl (32.0-36.5); MEAN CORPUSCULAR VOLUME 95.2 fl (80.0-96.0); MONO # 0.6 10^3/uL (0.0-0.8); MONO % 10.7 % (0.0-5.0); NEUTROPHILS # 3.7 10^3/uL (1.5-8.5); NEUTROPHILS % 64.4 % (36.0-66.0); PLATELET COUNT, AUTOMATED 621 10^3/uL (150-450); RED BLOOD COUNT 3.54 10^6/uL (4.30-6.10); WHITE BLOOD COUNT 5.8 10^3/uL (4.0-10.0)
[2019-05-20] MEDS: LEVOTHYROXINE 50MCG TABLET (0.05MG) PO SCH (05:08)
--- NOTE | 2019-05-20 08:30 | REP ---
Clinical: Pleural/pericardial effusion. Technique: PA and lateral. Comparison: 05/19/2019. Findings: Moderate left and small right pleural effusions along with associated lower lobe atelectasis remain essentially stable. No obvious pneumothorax noted. The mediastinum and cardiac silhouette are relatively stable in appearance. Skeletal structures are intact. Impression: 1. Moderate left and small right pleural effusions with associated bibasilar atelectasis similar to prior examination. 2. Mediastinum and cardiac silhouette remains stable. Electronically Signed by Fred Simmons MD 05/20/2019 08:22 A
[2019-05-20] MEDS: CLOPIDOGREL 75 MG TAB PO SCH (09:30)
[2019-05-20] MEDS: MULTIVITAMINS/MINERALS THERAP 1 TAB PO SCH (09:30)
[2019-05-20] MEDS: SERTRALINE HCL 25 MG TABLET PO SCH (09:30)
[2019-05-20] MEDS: FOLIC ACID 1 MG TAB PO SCH (09:30)
[2019-05-20] MEDS: DOCUSATE SODIUM 100 MG CAP PO SCH ×2 (09:30→20:51)
[2019-05-20] MEDS: PANTOPRAZOLE 40MG TAB (PROTONIX) PO SCH (09:30)
[2019-05-20] MEDS: THIAMINE 100 MG TAB PO SCH (09:30)
[2019-05-20] MEDS: APIXABAN 5 MG TAB (ELIQUIS) PO SCH ×2 (09:30→20:51)
[2019-05-20] MEDS: TORSEMIDE 20 MG TAB PO SCH ×2 (09:30→17:03)
[2019-05-20] MEDS: ENTRESTO 24-26MG TABLET (SACUBITRIL/VALSARTAN) PO SCH ×2 (09:31→20:51)
[2019-05-20] MEDS: METOPROLOL SUCC (TopROL XL) 100MG *XL* TAB PO SCH (09:31)
[2019-05-20] MEDS: DIGOXIN 0.25 MG TAB PO SCH (09:31)
[2019-05-20] MEDS: MOM 30ML SUSPENSION UDC PO PRN (13:34)
--- NOTE | 2019-05-20 16:34 | IPN ---
DATE: 05/20/2019 TIME: 4:06 p.m. SUBJECTIVE: Patient noticed a little bit of lightheadedness when standing up this morning. He reports decreased appetite. He reports mild shortness of breath on exertion walking to the bathroom and back. He is aware he still has some mild leg edema. No chest pain or chest discomfort. PHYSICAL EXAMINATION: Temperature 97.5, pulse 69, respiratory rate 20, blood pressure 104/51, oxygen (O2) saturation 93% on room air. Weight today 91.2 kg, which represents a 1.1 kg decrease in the weight recorded yesterday. Net negative 1610 mL for the 24 hours of 05/19/2019. Jugular venous pulsations were at 8 cm. First and second heart sounds diminished. No S3 or murmurs. Implantable cardioverter defibrillator (ICD) in situ left pectoral. Respiratory expansion and effort was good. No crackles or wheezes. Abdomen: Soft, nontender with normal bowel sounds. 2 mm of pitting edema was present at mid and distal tibia level bilaterally. No med profile available today. I will order one. Laboratory work 05/20/2019 shows hemoglobin 11.2, hematocrit 33.7. ASSESSMENT AND PLAN: 1. Paroxysmal atrial fibrillation, rate controlled approach. Continue apixaban and metoprolol succinate 100 mg daily. Because the patient has decreased appetite, I will reduce the dose of digoxin to 0.125 mg daily. 2. Dilated cardiomyopathy. Severe left ventricular (LV) systolic dysfunction. Currently [place] [employer] (NYHA) functional class III. Remains decompensated but has been improving steadily. I will decrease digoxin to 0.125 mg daily because of decreased appetite. Continue metoprolol succinate 100 mg daily and continue Entresto 24-26 mg twice a day and torsemide 20 mg twice a day. 3. Heart failure (acute on chronic, systolic and diastolic). As per dilated cardiomyopathy category above. 4. Coronary artery disease ([place] vessel), status post percutaneous coronary intervention with coronary stent to the third obtuse marginal 05/03/2019. Continue clopidogrel. Continue metoprolol. Continue valsartan (via Entresto) 5. Pericardial effusion. The patient is status post successful pericardiocentesis. Stable. 6. Left bundle branch block. Status post biventricular ICD. Stable. 7. Status post biventricular ICD in situ. Stable. Currently VVIR 70. 8. Systemic hypertension. Blood pressure controlled. Continue torsemide, valsartan, and metoprolol succinate. Continue torsemide. 9. Hypothyroidism. Continue thyroid replacement. 10. Obesity. Stable.
[2019-05-20] MEDS: DIGOXIN 0.125 MG TAB PO SCH (17:04)
[2019-05-20] MEDS: FAMOTIDINE 20 MG TAB PO SCH (20:50)
[2019-05-21] MEDS: LEVALBUTEROL 1.25 MG/0.5 ML CONCENTRATE NEB NEB SCH ×4 (01:31→20:45)
[2019-05-21 04:00] VITALS: BP 105/59
[2019-05-21] MEDS: LEVOTHYROXINE 50MCG TABLET (0.05MG) PO SCH (05:21)
[2019-05-21 05:51] LABS: BASO # 0.1 10^3/uL (0.0-0.2); BASO % 1.2 % (0.0-1.0); EOS # 0.1 10^3/uL (0.0-0.5); EOS % 2.2 % (0.0-3.0); HEMATOCRIT 34.6 % (42.0-52.0); HEMOGLOBIN 11.4 g/dl (13.5-17.5); LYMPH # 1.4 10^3/uL (1.5-5.0); LYMPH % 23.8 % (24.0-44.0); MEAN CORPUSCULAR HEMOGLOBIN 31.4 pg (27.0-33.0); MEAN CORPUSCULAR HGB CONC 32.9 g/dl (32.0-36.5); MEAN CORPUSCULAR VOLUME 95.3 fl (80.0-96.0); MONO # 0.6 10^3/uL (0.0-0.8); MONO % 10.8 % (0.0-5.0); NEUTROPHILS # 3.7 10^3/uL (1.5-8.5); NEUTROPHILS % 61.8 % (36.0-66.0); PLATELET COUNT, AUTOMATED 593 10^3/uL (150-450); RED BLOOD COUNT 3.63 10^6/uL (4.30-6.10); WHITE BLOOD COUNT 5.9 10^3/uL (4.0-10.0)
[2019-05-21 06:16] LABS: CALCIUM LEVEL 8.1 MG/DL (8.8-10.2); CREATININE FOR GFR 1.92 MG/DL (0.70-1.30); POTASSIUM SERUM 3.7 MEQ/L (3.5-5.1)
[2019-05-21 08:00] VITALS: BP 110/69
--- NOTE | 2019-05-21 08:03 | REP ---
Clinical: Follow up effusion. Technique: PA and lateral. Comparison: 05/20/2019. Findings: Moderate opacification involving the left lower lung zone most compatible with pleural effusion. Small right effusion is also suggested along with bilateral passive atelectasis (left greater than right). Visualized portions of the mediastinal and cardiac silhouette appear relatively stable/normal. Pacemaker in stable position. No pneumothorax identified. Skeletal structures are stable. Impression: 1. Moderate left and small right pleural effusion similar to prior examination with associated passive atelectasis suggested. 2. Visualized portions of the mediastinal and cardiac silhouette are stable. Electronically Signed by Fred Simmons MD 05/21/2019 07:55 A
[2019-05-21] MEDS: TORSEMIDE 20 MG TAB PO SCH ×2 (09:01→16:21)
[2019-05-21] MEDS: DIGOXIN 0.125 MG TAB PO SCH (09:01)
[2019-05-21] MEDS: APIXABAN 5 MG TAB (ELIQUIS) PO SCH ×2 (09:01→20:50)
[2019-05-21] MEDS: FOLIC ACID 1 MG TAB PO SCH (09:01)
[2019-05-21] MEDS: ENTRESTO 24-26MG TABLET (SACUBITRIL/VALSARTAN) PO SCH (09:01)
[2019-05-21] MEDS: PANTOPRAZOLE 40MG TAB (PROTONIX) PO SCH (09:01)
[2019-05-21] MEDS: SERTRALINE HCL 25 MG TABLET PO SCH (09:02)
[2019-05-21] MEDS: DOCUSATE SODIUM 100 MG CAP PO SCH ×2 (09:02→20:50)
[2019-05-21] MEDS: MULTIVITAMINS/MINERALS THERAP 1 TAB PO SCH (09:02)
[2019-05-21] MEDS: THIAMINE 100 MG TAB PO SCH (09:02)
[2019-05-21] MEDS: CLOPIDOGREL 75 MG TAB PO SCH (09:02)
[2019-05-21] MEDS: METOPROLOL SUCC (TopROL XL) 100MG *XL* TAB PO SCH (09:02)
[2019-05-21 11:58] VITALS: BP 100/60
[2019-05-21] MEDS ORDERED: SLF 3 ML SYR IV PRN (15:15)
[2019-05-21 16:00] VITALS: BP 103/56
--- NOTE | 2019-05-21 17:40 | IPN ---
DATE: 05/21/2019 at 05:14 p.m. SUBJECTIVE: The patient has only been walking short distances in the room but has not noticed any shortness of breath today. No orthopnea or paroxysmal nocturnal dyspnea (PND). No chest pain or chest discomfort. No palpitations. No lightheadedness today. He has noticed the edema in his legs has nearly resolved. He does not have any nausea but reports he has no appetite. PHYSICAL EXAMINATION: Temperature 97.7, pulse 65, respiratory rate 18, blood pressure 103/56, oxygen saturation 97% on room air. Intake and output for the 24 hours of 05/20/2019 showed the patient to be net negative 210 mL. Weight today 90 kg which is 1.2 kg less than the weight recorded yesterday. Jugular venous pulsations were at 5 cm. First and second sounds were reduced in intensity. No S3 or murmurs appreciated. Respiratory expansion effort was good. No crackles or wheezes. Abdomen was soft and nontender with normal bowel sounds. Trace pitting edema at mid and distal tibia level bilaterally. LABORATORY WORK: 05/21/2019 shows sodium 139, potassium 3.7, chloride 103, CO2 33, BUN 25, creatinine 1.92, estimated GFR of 37.0, glucose 104, calcium 8.1. ASSESSMENT AND PLAN: 1. Paroxysmal atrial fibrillation. Rate control approached. Heart rate controlled. Currently, his device is set for VVIR of 70. Continue digoxin 0.125 mg daily, Eliquis 5 mg twice a day, metoprolol succinate 100 mg daily. 2. Dilated cardiomyopathy. The patient appears to be at his functional dry weight. His renal function has deteriorated. I will place the Eliquis on hold until renal function starts to improve again. Continue metoprolol succinate 100 mg daily. I will discontinue torsemide until renal function starts to improve. 3. Heart failure (acute on chronic, systolic and diastolic). As per dilated cardiomyopathy category above. 4. Coronary artery disease (CAD), [place] vessel. Status post coronary stent 05/03/2001. Continue clopidogrel. Continue metoprolol succinate. Valsartan via Entresto will placed on hold because of the deterioration in renal function. 5. Pericardial effusion. Status post pericardiocentesis. Stable. 6. Left bundle branch block. Status post biventricular implantable cardioverter defibrillator (ICD). Stable. 7. Status post biventricular ICD in situ. Stable. Set to VVIR 70. 8. Systemic hypertension. Blood pressure controlled. Continue metoprolol. Torsemide and valsartan will be held temporarily because of the deterioration in renal function. 9. Hypothyroidism. Continue thyroid replacement. 10. Obesity. Stable.
[2019-05-21 20:00] VITALS: BP 127/65
[2019-05-21] MEDS: FAMOTIDINE 20 MG TAB PO SCH (20:50)
[2019-05-21] MEDS: SLF 3 ML SYR IV SCH (20:51)
[2019-05-21 23:59] VITALS: BP 119/78
[2019-05-22] MEDS: LEVALBUTEROL 1.25 MG/0.5 ML CONCENTRATE NEB NEB SCH ×4 (02:00→19:35)
[2019-05-22 04:00] VITALS: BP 112/55
[2019-05-22] MEDS: LEVOTHYROXINE 50MCG TABLET (0.05MG) PO SCH (05:54)
[2019-05-22] MEDS: SLF 3 ML SYR IV SCH ×3 (05:54→20:25)
[2019-05-22 06:44] LABS: BASO # 0.1 10^3/uL (0.0-0.2); BASO % 1.2 % (0.0-1.0); EOS # 0.2 10^3/uL (0.0-0.5); EOS % 2.5 % (0.0-3.0); HEMATOCRIT 34.7 % (42.0-52.0); HEMOGLOBIN 11.5 g/dl (13.5-17.5); LYMPH # 1.4 10^3/uL (1.5-5.0); LYMPH % 23.3 % (24.0-44.0); MEAN CORPUSCULAR HEMOGLOBIN 31.5 pg (27.0-33.0); MEAN CORPUSCULAR HGB CONC 33.1 g/dl (32.0-36.5); MEAN CORPUSCULAR VOLUME 95.1 fl (80.0-96.0); MONO # 0.7 10^3/uL (0.0-0.8); NEUTROPHILS # 3.7 10^3/uL (1.5-8.5); NEUTROPHILS % 61.7 % (36.0-66.0); PLATELET COUNT, AUTOMATED 551 10^3/uL (150-450); RED BLOOD COUNT 3.65 10^6/uL (4.30-6.10)
[2019-05-22 07:03] LABS: CALCIUM LEVEL 8.6 MG/DL (8.8-10.2); CREATININE FOR GFR 1.91 MG/DL (0.70-1.30); GLOMERULAR FILTRATION RATE 37.3 (>42)
[2019-05-22 08:00] VITALS: BP 112/63
[2019-05-22] MEDS: CLOPIDOGREL 75 MG TAB PO SCH (08:06)
[2019-05-22] MEDS: PANTOPRAZOLE 40MG TAB (PROTONIX) PO SCH (08:06)
[2019-05-22] MEDS: SERTRALINE HCL 25 MG TABLET PO SCH (08:06)
[2019-05-22] MEDS: THIAMINE 100 MG TAB PO SCH (08:06)
[2019-05-22] MEDS: DOCUSATE SODIUM 100 MG CAP PO SCH ×3 (08:07→20:27)
[2019-05-22] MEDS: APIXABAN 5 MG TAB (ELIQUIS) PO SCH ×2 (08:07→20:24)
[2019-05-22] MEDS: METOPROLOL SUCC (TopROL XL) 100MG *XL* TAB PO SCH (08:07)
[2019-05-22] MEDS: DIGOXIN 0.125 MG TAB PO SCH (08:07)
[2019-05-22] MEDS: MULTIVITAMINS/MINERALS THERAP 1 TAB PO SCH (08:07)
[2019-05-22] MEDS: FOLIC ACID 1 MG TAB PO SCH (08:07)
--- NOTE | 2019-05-22 08:13 | REP ---
PA and lateral chest: Comparison is 05/21/2019. The bilateral pleural effusions are unchanged. Lung burks otherwise clear. Cardiac size is mildly enlarged, unchanged. The triple lead biventricular pacemaker is unchanged. The villa, mediastinum, skeletal structures are unchanged. Impression: There is no interval change. Electronically Signed by Yevgeniy Trotter MD 05/22/2019 08:05 A
[2019-05-22 12:00] VITALS: BP 128/79
--- NOTE | 2019-05-22 14:14 | IPN ---
CARDIOLOGY PROGRESS NOTE DATE: 05/22/2019 SUBJECTIVE: The patient claims to have no chest discomfort, shortness of breath or dizziness. Does feel weak, but has not been encouraged to ambulate. OBJECTIVE: Elderly male. medium body build, slightly barrel-chested, laying comfortably flat. Heart rate 74 beats per minute and regular with occasional irregularity, blood pressure of 108/58 supine, 96/50 sitting and 90/45 standing (asymptomatic), respiratory rate 16, oxygen saturation 97% on room air. No pallor or cyanosis. Normal oral moisture. Trachea midline. Neck veins did appear to be elevated approximately 4 cm above the sternal angle. Continues to have some dullness over the left base, but otherwise clear lung burks with no abnormal adventitious sounds. Apical impulse not palpable. Heart sounds slightly distant, but no significant murmur or rub. Soft abdomen with plus/minus pitting edema three-quarters the way up both lower legs and over his sacrum. CHEST X-RAY: Has been receiving daily chest x-rays for some reason. Study today is unchanged from yesterday and the day before, showing cardiomegaly with his biventricular implantable cardioverter defibrillator (ICD) in situ with stable lead position. Pulmonary vasculature, interestingly, did not appear to be congested. Lung burks were clear except for heavy, stable left pleural effusion. 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 Frustratingly, he is often having spontaneous QRS complexes with left bundle branch block, so is not benefiting from his biventricular pacing system. His current negative chronotropic therapy is not suppressing his intrinsic activity. LABORATORY DATA: Blood work today showed a hemoglobin of 11.5 which is stable, normal white blood cell count, persistently elevated platelet count of 551. Electrolytes were in balance with essentially stable BUN of 27 and slightly elevated serum creatinine of 1.91, similar to yesterday after his trial of Entresto. IMPRESSION/PLAN: 1. Heart failure (systolic and diastolic/acute on chronic): Currently he remains at his functional dry weight, though he does have neck vein elevation and some systemic edema. As mentioned, is not benefiting from his biventricular pacing system on his current combination digoxin and metoprolol succinate. The latter drug has been replaced with a Zebeta 5 mg twice a day. Developed significantly worsening renal function with trial of Entresto. I have elected to start low-dose combination isosorbide dinitrate and hydralazine. We will also encourage his ambulation. 2. Permanent atrial fibrillation: Ventricular response controlled, but not sufficiently to maximize biventricular pacing as mentioned above. Remains on oral anticoagulation without hemorrhagic complication. 3. Pericardial effusion: No sign of persistent effusion on his last echocardiogram performed before his pericardial tube was removed 05/17/2019. 4. Dilated cardiomyopathy: Frustratingly, his last echocardiogram shows fairly dismal left ventricular systolic function. I have adjusted his negative chronotropic therapy and vasodilator therapy, as mentioned above. We will continue to monitor his renal function closely. 5. Post cardiac arrest/biventricular ICD in situ: Has remained free of complex ventricular arrhythmia. 6. Coronary artery disease (CAD) ([place] vessel)/post obtuse marginal (OM) stenting: Has remained free of any chest discomfort. Will now be on protective combination of bisoprolol and Eliquis. As mentioned, I am hoping to encourage his ambulation and perhaps look for discharge from hospital the beginning of this week. Appreciate the assistance that mental health has tried to provide. I understand the patient was reluctant to receive antidepressant therapy; however, has accepted low-dose Zoloft.
[2019-05-22] MEDS: ISOSORBIDE DIN (ISORDIL) 10 MG TAB PO SCH ×2 (15:21→20:24)
[2019-05-22] MEDS: **hydrALAZINE** 10 MG TAB PO SCH ×2 (15:22→20:24)
[2019-05-22 16:00] VITALS: BP 102/61
[2019-05-22 20:00] VITALS: BP 117/80
[2019-05-22] MEDS: bisoproloL fumarate 5 MG TAB PO SCH (20:24)
[2019-05-22] MEDS: FAMOTIDINE 20 MG TAB PO SCH (20:25)
[2019-05-23] VITALS: BP 118/79
[2019-05-23] MEDS: LEVALBUTEROL 1.25 MG/0.5 ML CONCENTRATE NEB NEB SCH ×4 (01:36→19:35)
[2019-05-23 04:00] VITALS: BP 114/72
[2019-05-23] MEDS: SLF 3 ML SYR IV SCH ×3 (05:35→20:32)
[2019-05-23] MEDS: LEVOTHYROXINE 50MCG TABLET (0.05MG) PO SCH (05:35)
[2019-05-23 06:09] LABS: CALCIUM LEVEL 8.5 MG/DL (8.8-10.2); CREATININE FOR GFR 1.76 MG/DL (0.70-1.30); POTASSIUM SERUM 3.5 MEQ/L (3.5-5.1)
[2019-05-23 08:00] VITALS: BP 110/71
[2019-05-23] MEDS: APIXABAN 5 MG TAB (ELIQUIS) PO SCH ×2 (08:59→20:30)
[2019-05-23] MEDS: MULTIVITAMINS/MINERALS THERAP 1 TAB PO SCH (08:59)
[2019-05-23] MEDS: FOLIC ACID 1 MG TAB PO SCH (08:59)
[2019-05-23] MEDS: CLOPIDOGREL 75 MG TAB PO SCH (08:59)
[2019-05-23] MEDS: DOCUSATE SODIUM 100 MG CAP PO SCH ×2 (08:59→20:31)
[2019-05-23] MEDS: **hydrALAZINE** 10 MG TAB PO SCH ×3 (08:59→20:31)
[2019-05-23] MEDS: PANTOPRAZOLE 40MG TAB (PROTONIX) PO SCH (08:59)
[2019-05-23] MEDS: DIGOXIN 0.125 MG TAB PO SCH (09:00)
[2019-05-23] MEDS: ISOSORBIDE DIN (ISORDIL) 10 MG TAB PO SCH ×3 (09:00→20:32)
[2019-05-23] MEDS: bisoproloL fumarate 5 MG TAB PO SCH ×2 (09:00→20:31)
[2019-05-23] MEDS: THIAMINE 100 MG TAB PO SCH (09:02)
[2019-05-23] MEDS: SERTRALINE HCL 25 MG TABLET PO SCH (09:02)
[2019-05-23 13:00] VITALS: BP 108/56
--- NOTE | 2019-05-23 15:28 | IPN ---
CARDIOLOGY PROGRESS NOTE DATE: 05/23/2019 SUBJECTIVE: The patient has been gradually increasing his ambulation and has been free of any chest discomfort, shortness of breath or dizziness. He appears to tolerate his current medications without adverse effect. OBJECTIVE: Pleasant, elderly male of medium body build sitting in a bedside chair without problems. Heart rate 70 beats per minute and regular, blood pressure 102/56 sitting, respiratory rate 16 per minute, oxygen saturation 95% on room air. Afebrile. His weight has been stable off diuretic therapy. No pallor or cyanosis. Normal oral moisture. Trachea midline. Neck veins were approximately 4 cm above the sternal angle and he still has some distal lower extremity pitting. Good air entry over both lung burks with no current abnormal adventitious sounds. 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 Remains free of ventricular arrhythmia. Still has sustained atrial fibrillation. LABORATORY DATA: No blood work was obtained today. Followup chemistry will be obtained tomorrow. IMPRESSION/PLAN 1. Heart failure (systolic and diastolic/acute on chronic): Remains at his functional dry weight and is stable without diuretic therapy. Appears to tolerate his current combination bisoprolol, isosorbide dinitrate and hydralazine without adverse effect. 2. Permanent atrial fibrillation: Tolerating his bisoprolol and oral anticoagulation without problem. 3. Pericardial effusion: No audible pericardial rub. Neck vein elevation is stable. This is believed to be related to his pulmonary hypertension and right heart failure. 4. Dilated cardiomyopathy: On protective combination medical therapy. Not on diuretics at this point. We are hoping he will comply with a modest salt and fluid intake restriction at home and avoid further alcohol intake, which we believe triggered his decompensation at this time. 5. Post cardiac arrest/biventricular implantable cardioverter defibrillator (ICD) in situ: Has remained free of complex ventricular arrhythmia. 6. Coronary disease/post obtuse marginal stenting: No sign of myocardial ischemia at this time. Continues on protective combination bisoprolol, isosorbide dinitrate and Eliquis. We are cautiously optimistic that we will be able to get him home tomorrow. We do appreciate the assistance of mental health. He is tolerating Zoloft without problem.
[2019-05-23 16:00] VITALS: BP 133/70
[2019-05-23 20:00] VITALS: BP 133/69
[2019-05-23] MEDS: FAMOTIDINE 20 MG TAB PO SCH (20:30)
[2019-05-24] VITALS: BP 102/58
[2019-05-24] MEDS: LEVALBUTEROL 1.25 MG/0.5 ML CONCENTRATE NEB NEB SCH ×3 (01:53→13:57)
[2019-05-24 04:00] VITALS: BP 101/54
[2019-05-24] MEDS: SLF 3 ML SYR IV SCH (05:10)
[2019-05-24] MEDS: LEVOTHYROXINE 50MCG TABLET (0.05MG) PO SCH (05:10)
[2019-05-24] MEDS ORDERED: LEVOTHYROXINE 75MCG TABLET (0.075MG) PO SCH (06:00)
[2019-05-24 06:01] LABS: ALBUMIN 2.9 GM/DL (3.2-5.2); CALCIUM LEVEL 7.9 MG/DL (8.8-10.2); CREATININE FOR GFR 1.84 MG/DL (0.70-1.30); GLOMERULAR FILTRATION RATE 38.9 (>42); PHOSPHORUS LEVEL 3.3 MG/DL (2.5-4.9); POTASSIUM SERUM 3.6 MEQ/L (3.5-5.1); THYROID STIMULATING HORMONE 15.8 uIU/ML (0.358-3.740)
[2019-05-24 08:00] VITALS: BP 106/57
[2019-05-24] MEDS: DOCUSATE SODIUM 100 MG CAP PO SCH (09:00)
[2019-05-24] MEDS: bisoproloL fumarate 5 MG TAB PO SCH (09:09)
[2019-05-24] MEDS: DIGOXIN 0.125 MG TAB PO SCH (09:09)
[2019-05-24 09:10] VITALS: BP 106/57
[2019-05-24] MEDS: MULTIVITAMINS/MINERALS THERAP 1 TAB PO SCH (09:10)
[2019-05-24] MEDS: ISOSORBIDE DIN (ISORDIL) 10 MG TAB PO SCH (09:10)
[2019-05-24] MEDS: APIXABAN 5 MG TAB (ELIQUIS) PO SCH (09:10)
[2019-05-24] MEDS: CLOPIDOGREL 75 MG TAB PO SCH (09:10)
[2019-05-24] MEDS: PANTOPRAZOLE 40MG TAB (PROTONIX) PO SCH (09:10)
[2019-05-24] MEDS: FOLIC ACID 1 MG TAB PO SCH (09:10)
[2019-05-24] MEDS: **hydrALAZINE** 10 MG TAB PO SCH (09:11)
[2019-05-24] MEDS: THIAMINE 100 MG TAB PO SCH (09:11)
[2019-05-24] MEDS: SERTRALINE HCL 25 MG TABLET PO SCH (09:11)
[2019-05-24] MEDS ORDERED: FAMO20TA PO (11:44)
[2019-05-24] MEDS ORDERED: SERT25TA21 PO (11:44)
[2019-05-24] MEDS ORDERED: BISO5TAB14 PO (11:44)
[2019-05-24] MEDS ORDERED: HYDR10TAB PO (11:44)
[2019-05-24] MEDS ORDERED: ISOS10TA PO (11:44)
[2019-05-24] MEDS ORDERED: LEVO75TA4 PO (11:44)
[2019-05-24] MEDS ORDERED: DIGO0.123 PO (11:44)
[2019-05-24 12:00] VITALS: BP 121/73
[2019-05-24] MEDS ORDERED: PNEUMOCOCCAL VACCINE 0.5ML SYRINGE(90732) PNEUMOVAX 23 IM ONE (12:00)
[2019-05-24] MEDS ORDERED: FLUBLOK(EGG FREE)(QUAD)INFLUENZA VACC 0.5ML SYRINGE (90682)18YRS&OLDER IM ONE (12:00)
--- NOTE | 2019-05-24 12:41 | DSES ---
DISCHARGE SUMMARY DATE OF ADMISSION: 05/12/2019 DATE OF DISCHARGE: 05/24/2019 ATTENDING PHYSICIAN: Dr. Meliton Leger. PRIMARY CARE PROVIDER: Dr. Delfino Olson CLINICAL SUMMARY: This is 68-year-old father of three grown children. He is well-known to our cardiology practice with obesity, hypertensive heart disease and dilated cardiomyopathy (possibly alcohol related) complicated by paroxysmal atrial fibrillation, abnormal EKG (left bundle branch block) and heart failure (systolic and diastolic). April 27, 2019, he was successfully resuscitated from cardiac arrest triggered by medication noncompliance. Was transferred to [facility] in [place] and underwent cardiac catheterization showing a dilated, globally hypokinetic left ventricle, LVEF 25%, and LVEDP 24 mmHg, a small distal obtuse marginal branch of the circumflex stenosis that was stented May 03, 2019. At the same time, he underwent implantation of a biventricular cardioverter defibrillator in light of his heart failure, left bundle branch block and resuscitated ventricular fibrillation. He had been discharged on May 04, 2019. When he presented to our office in followup May 12, 2027, he was found to be in gross congestive heart failure with atrial fibrillation and rapid ventricular response. INVESTIGATIONS AND COURSE IN HOSPITAL: Last chest x-ray at [facility] reported obvious cardiomegaly with improving pulmonary edema and bilateral pleural effusions with left-sided biventricular ICD in situ. EKG on day of his admission showed underlying atrial fibrillation with rapid ventricular response averaging 125 beats per minute with only rare biventricular paced beats. His spontaneous beats again have a left bundle branch block configuration (clearly not helping him). Admission blood work showed a hemoglobin of 10, white blood cell count 9.9 and platelet count 599,000. His admission PT/INR was normal at 16.7 and 1.39. Admission chemistry showed electrolyte balance with BUN 22, creatinine 1.0, random glucose 106, calcium from 8.8, albumin 3.5. Ultra sensitive TSH was slightly elevated at 13.4. Liver function studies were normal. Troponin I level was negative. His proBNP level was significantly elevated 66,330. He is admitted to the intensive care unit and our attention focused initially on controlling his ventricular response atrial fibrillation with combination digoxin and bisoprolol. We initially considered using amiodarone loading to convert him but had given up on this thought with his left atrium severely increased in size. He continued on oral anticoagulation with no evidence of abnormal bleeding. Well-documented dilated cardiomyopathy suspected to be related to his alcoholism and hypertension. No significant coronary disease or valvular heart disease. Impressed the importance of alcohol cessation and reviewed the need for modest salt and fluid intake restriction. He was given IV Lasix 20 mg every 4 hours aiming for 1 liter negative fluid balance. We also tried to use low-dose spironolactone 12.5 mg daily, but this was discontinued because of worsening renal function and elevated potassium. Alonso management would also include optimal use of his biventricular pacing system (cardiac resynchronization with digoxin and bisoprolol as mentioned above. Echocardiogram performed May 13, 2019 showed a mild eccentric left ventricle hypertrophy with fairly severely global hypokinetic left ventricle intermittent paradoxical septal motion and apical akinesis with his spontaneous left bundle branch block pattern, ejection fraction estimated at 20%. His estimated wedge pressure was 19.5 mmHg. Pulmonary arterial pressure was elevated at 56 mmHg, an IVC was 2.7 cm in diameter. Right heart chambers were upper limits of normal to mildly dilated. Mild aortic valvular sclerosis with mild insufficiency. Normal-appearing mitral valvular apparatus with mild insufficiency. He also had a large pericardial effusion but no clear evidence of cardiac chamber compression. Temporarily withholding his antiplatelet therapy and oral anticoagulation, he underwent successful tube pericardiostomy and pericardiocentesis with echocardiographic control. A total of 1450 mL of old bloody fluid was drained. Etiology was believed to be related to his prior external chest compression and combination antiplatelet and oral anticoagulant therapies. He tolerated the procedure well but this did not have an impact on his blood pressure. Followup echocardiogram prior to pericardial tube removal May 17, 2019 did show a reduction in left ventricular size with moderate left ventricle hypertrophy, ejection fraction had improved to 45% left atrium remained prominently dilated with estimated, PCWP of 16 mmHg. Right heart chambers were moderately dilated with hypokinesis and pulmonary arterial pressure 55 mmHg, IVC remained dilated with virtually absent respiratory collapse in keeping with right heart failure. There was no longer any pericardial effusion. On telemetry he remained free of any complex ventricular arrhythmia, but ultimately his ventricular rate was controlled allowing biventricular pacing virtually 99% of the time. In light of his left ventricular dysfunction and renal insufficiency, instead of resuming his lisinopril therapy, he was introduced to isosorbide dinitrate and hydralazine 10 mg three times a day with good effect. His admission weight was 99.5 kg. His discharge weight today is 90.7 kg. Heart rate was 70, blood pressure 106/57 sitting with legs with legs dependent. Respiratory was 16, O2 saturation was 96% on room air. He was afebrile. Chemistry today showed electrolyte balance with potassium 3.6, BUN 26, creatinine 1.84, glucose 112 last magnesium level 2.2, albumin 2.9. Ultra sensitive TSH was 15.8. He was ambulating on the floor without chest discomfort, dyspnea or dizziness. FINAL DIAGNOSES: 1. Heart failure (systolic and diastolic dysfunction/acute on chronic closed) - currently at his effective dry weight. 2. Permanent atrial fibrillation - currently with controlled heart rate and on oral anticoagulation. 3. Pericardial effusion (post-traumatic) - successfully drained. 4. Dilated cardiomyopathy (alcohol plus/minus hypertension). 5. Post cardiac arrest/biventricular implantable cardioverter defibrillator in situ - free of recurrent complex ventricular arrhythmia. 6. Coronary disease/post obtuse marginal stenting. 7. Reactive depression - assessed by mental health and started on antidepressant therapy. DISCHARGE MEDICATIONS AND RECOMMENDATIONS: We have reviewed, with the assistance of the cardiac rehab program anti-failure measures including a modest salt and fluid intake restriction. I have recommended he weigh himself every day postvoiding and he is to take Lasix if his weight increases by 2 pounds or more in 24 hours or 4 pounds in 1 week. His activity is to be as tolerated. CURRENT MEDICATIONS: - bisoprolol 5 mg twice a day - digoxin 0.125 mg daily - hydralazine 10 mg three times a day - isosorbide dinitrate 10 mg three times a day - Eliquis 5 mg twice a day - atorvastatin 20 mg daily - nitroglycerin 0.4 mg sublingual every 5 minutes as needed chest pain - levofloxacin 75 mcg daily - Zoloft 25 mg daily - clopidogrel 75 mg daily - folic acid 1 mg daily - multivitamin 1 tablet daily - thiamine 100 mg by mouth daily - famotidine 40 mg nightly - acetaminophen 500 mg tablets one tablet every 6 hours as needed pain. He has an office visit with us as scheduled for this Tuesday May 28, 2019 at 9:15 a.m.. We have encouraged him to contact us should he have any problems or any questions. BEV
--- NOTE | 2019-05-24 19:22 | ECGEPIP ---
[facility] Test Date: 2019-05-24 Pat Name: LUCIANO MARCOS Department: Room: Y1126-09 Gender: Male [employer]: : [id number] Requested By: Meliton Leger Order Number: [id number] Reading MD: Meliton Leger Measurements Intervals [place] Rate: 70 P: HI: 0 QRS: 224 QRSD: 210 T: 0 QT: 471 QTc: 509 Interpretive Statements Ongoing underlying atrial fibrillation Mostly biventricular paced rhythm (indeterminant frontal axis with Right bundle branch block configuration. Single spontaneous complex with Left bundle branch block configuration. spontaneous activity compared with 05/18/19. Electronically Signed on 05-24-2019 19:22:23 EST by Meliton Leger
== END 2019-05-24 14:36 | disposition home health service (06) | DRG 308 ==
LOC: M ICU 14:55 → M PCU 05-17 17:15
PROVIDERS: ADMIT Internal Medicine Cardiovascular Disease; ATTEND Internal Medicine Cardiovascular Disease
PROC: 0W9D30Z Drainage of Pericardial Cavity with Drainage Device, Percutaneous Approach (ICD-10-PCS; principal; 2019-05-15)
DX: I48.21 Permanent atrial fibrillation (principal); I50.43 Acute on chronic combined systolic (congestive) and diastolic (congestive) heart failure; M62.82 Rhabdomyolysis; I31.3 Pericardial effusion (noninflammatory); S22.49XA Multiple fractures of ribs, unspecified side, initial encounter for closed fracture; I42.6 Alcoholic cardiomyopathy; I42.0 Dilated cardiomyopathy; I11.0 Hypertensive heart disease with heart failure; F32.9 Major depressive disorder, single episode, unspecified; E66.9 Obesity, unspecified; Z95.2 Presence of prosthetic heart valve; Z91.14 Patient's other noncompliance with medication regimen; Z79.899 Other long term (current) drug therapy; Z79.01 Long term (current) use of anticoagulants; I44.7 Left bundle-branch block, unspecified; F17.200 Nicotine dependence, unspecified, uncomplicated; Z98.41 Cataract extraction status, right eye; Z98.42 Cataract extraction status, left eye; E03.9 Hypothyroidism, unspecified; I25.10 Atherosclerotic heart disease of native coronary artery without angina pectoris; Z95.810 Presence of automatic (implantable) cardiac defibrillator; F43.0 Acute stress reaction; Y84.8 Other medical procedures as the cause of abnormal reaction of the patient, or of later complication, without mention of misadventure at the time of the procedure

== ENCOUNTER 2019-12-25 10:37 | Emergency (ER) | payer MEDICARE, OTHER ==
[~2019-12-25] VITALS: Ht 177.8 cm; Wt 92.7 kg
[~2019-12-25 10:37] MED LIST changes: +ACET-683 PO; +ASPI81CH33 PO; +ATOR1TAB21 PO; +BISO5TAB14 PO; +CARV3.12 PO; +CLOP75TA2 PO; +DIGO0.123 PO; +ELIQ5TAB PO; +FAMO20TA PO; +FOLI1TAB11 PO; +HYDR10TAB PO; +ISOS10TA PO; +LEVO75TA4 PO; +NITR4TASL SL; +SERT25TA21 PO; +THIA100T7 PO; +VITMTA PO
[2019-12-25] MEDS ORDERED: VERA360C (10:48)
[2019-12-25] MEDS ORDERED: FURO40TA2 (10:48)
[2019-12-25] MEDS ORDERED: LEVO88TA3 (10:48)
--- NOTE | 2019-12-25 12:47 | REPVR ---
PROCEDURE INFORMATION: Exam: XR Chest, 2 Views Exam date and time: 12/25/2019 11:54 AM Age: 69 years old Clinical indication: Other: SOB; Additional info: Cough, SOB TECHNIQUE: Imaging protocol: XR of the chest Views: 2 views. COMPARISON: CR Chest, 2 view PA, Lat 05/21/2019 7:39 AM FINDINGS: Tubes, catheters and devices: AICD. Lungs: Hyperinflation , without acute airspace disease. Pleural space: Mild pleural thickening. Interval resolution of previously visualized left pleural effusion. Heart/Mediastinum: Cardiomegaly. Vasculature: Ectasia of the thoracic aorta. Bones/joints: Degenerative change. Old left rib fracture. IMPRESSION: Cardiomegaly, without acute airspace or pleural disease. Electronically signed by: Ronak Hughes On 12/25/2019 12:46:56 PM
[2019-12-25] MEDS ORDERED: TESS100C PO (12:54)
[2019-12-25 13:04] VITALS: BP 160/90
[2019-12-25 13:05] VITALS: O2SAT 94
== END 2019-12-25 13:06 | disposition home or self-care (01) ==
LOC: M ED 10:37
DX: J06.9 Acute upper respiratory infection, unspecified (principal); B34.9 Viral infection, unspecified; I11.9 Hypertensive heart disease without heart failure; E11.9 Type 2 diabetes mellitus without complications; J44.9 Chronic obstructive pulmonary disease, unspecified; I48.91 Unspecified atrial fibrillation; I25.2 Old myocardial infarction; I42.0 Dilated cardiomyopathy; I35.1 Nonrheumatic aortic (valve) insufficiency; I34.0 Nonrheumatic mitral (valve) insufficiency; E03.9 Hypothyroidism, unspecified; Z95.0 Presence of cardiac pacemaker; Z79.01 Long term (current) use of anticoagulants; Z79.899 Other long term (current) drug therapy

== ENCOUNTER → 2020-04-18 | Outpatient (CLI) | payer MEDICARE, OTHER ==
[~2020-04-18] MED LIST changes: +FURO40TA2; +LEVO88TA3; +LISI10TA22 PO; -LISI10TA4 PO; +TESS100C PO; +VERA360C
[2020-04-18 06:52] LABS: HEMATOCRIT 39.8 % (42.0-52.0); HEMOGLOBIN 12.7 g/dl (13.5-17.5); MEAN CORPUSCULAR HGB CONC 31.9 g/dl (32.0-36.5); MEAN CORPUSCULAR VOLUME 100.3 fl (80.0-96.0); PLATELET COUNT, AUTOMATED 259 10^3/uL (150-450); RED BLOOD COUNT 3.97 10^6/uL (4.30-6.10); WHITE BLOOD COUNT 6.1 10^3/uL (4.0-10.0)
[2020-04-18 07:28] LABS: ALBUMIN 3.7 GM/DL (3.2-5.2); ALT/SGPT 34 U/L (12-78); BILIRUBIN,TOTAL 0.4 MG/DL (0.2-1.0); BLOOD UREA NITROGEN 26 MG/DL (7-18); CALCIUM LEVEL 9.4 MG/DL (8.8-10.2); CARBON DIOXIDE LEVEL 31 MEQ/L (21-32); CHLORIDE LEVEL 108 MEQ/L (98-107); CHOLESTEROL LEVEL 119 MG/DL (<200); CHOLESTEROL RISK RATIO 2.975 (<5); CREATININE FOR GFR 1.18 MG/DL (0.70-1.30); GLOMERULAR FILTRATION RATE > 60.0 (>42); GLUCOSE, FASTING 91 MG/DL (70-100); HDL CHOLESTEROL 40 MG/DL (>40); LDL CHOLESTEROL 56 MG/DL (<100); NON-HDL-C 79 MG/DL; POTASSIUM SERUM 4.7 MEQ/L (3.5-5.1); SODIUM LEVEL 142 MEQ/L (136-145); TRIGLYCERIDES LEVEL 115 MG/DL (<150)
== END ==
LOC: M LAB 06:33
PROVIDERS: ATTEND Physician Assistant
DX: I50.42 Chronic combined systolic (congestive) and diastolic (congestive) heart failure (principal)

== ENCOUNTER → 2020-05-31 | Outpatient (CLI) | payer MEDICARE, OTHER ==
[2020-05-31 16:32] LABS: CALCIUM LEVEL 9.1 MG/DL (8.8-10.2); CREATININE FOR GFR 1.31 MG/DL (0.70-1.30); GLOMERULAR FILTRATION RATE 57.4 (>42); POTASSIUM SERUM 4.4 MEQ/L (3.5-5.1)
== END ==
LOC: M WUC 14:02
PROVIDERS: ATTEND Physician Assistant
DX: I50.42 Chronic combined systolic (congestive) and diastolic (congestive) heart failure (principal)

== ENCOUNTER 2020-06-09 16:20 | Emergency (ER) | payer MEDICARE, OTHER ==
[~2020-06-09] VITALS: Ht 177.8 cm; Wt 99.8 kg
[2020-06-09] MEDS ORDERED: DERMABOND TOPICAL SKIN ADHESIVE TOP ONE (17:50)
[2020-06-09 17:58] VITALS: BP 126/84
== END 2020-06-09 18:06 | disposition home or self-care (01) ==
LOC: M ED 16:20
DX: S61.002A Unspecified open wound of left thumb without damage to nail, initial encounter (principal); W26.0XXA Contact with knife, initial encounter; Y92.019 Unspecified place in single-family (private) house as the place of occurrence of the external cause; Y93.9 Activity, unspecified; Y99.9 Unspecified external cause status; I48.91 Unspecified atrial fibrillation; I25.2 Old myocardial infarction; J44.9 Chronic obstructive pulmonary disease, unspecified; Z87.891 Personal history of nicotine dependence; Z79.01 Long term (current) use of anticoagulants; Z79.899 Other long term (current) drug therapy

== ENCOUNTER → 2020-08-30 | Outpatient (CLI) | payer MEDICARE, OTHER ==
[2020-08-30 16:56] LABS: BASO # 0.1 10^3/uL (0.0-0.2); BASO % 0.7 % (0.0-1.0); EOS # 0.1 10^3/uL (0.0-0.5); EOS % 1.9 % (0.0-3.0); HEMATOCRIT 37.7 % (42.0-52.0); HEMOGLOBIN 12.3 g/dl (13.5-17.5); LYMPH # 1.3 10^3/uL (1.5-5.0); LYMPH % 18.5 % (24.0-44.0); MEAN CORPUSCULAR HEMOGLOBIN 32.2 pg (27.0-33.0); MEAN CORPUSCULAR HGB CONC 32.6 g/dl (32.0-36.5); MEAN CORPUSCULAR VOLUME 98.7 fl (80.0-96.0); MONO # 0.7 10^3/uL (0.0-0.8); MONO % 9.6 % (2.0-8.0); NEUTROPHILS # 4.7 10^3/uL (1.5-8.5); NEUTROPHILS % 69.2 % (36.0-66.0); PLATELET COUNT, AUTOMATED 294 10^3/uL (150-450); RED BLOOD COUNT 3.82 10^6/uL (4.30-6.10); WHITE BLOOD COUNT 6.7 10^3/uL (4.0-10.0)
[2020-08-30 17:19] LABS: BLOOD UREA NITROGEN 19 MG/DL (7-18); CALCIUM LEVEL 8.7 MG/DL (8.8-10.2); CARBON DIOXIDE LEVEL 28 MEQ/L (21-32); CHLORIDE LEVEL 109 MEQ/L (98-107); CREATININE FOR GFR 0.91 MG/DL (0.70-1.30); GLOMERULAR FILTRATION RATE > 60.0 (>42); GLUCOSE, FASTING 92 MG/DL (70-100); MAGNESIUM LEVEL 2.1 MG/DL (1.8-2.4); POTASSIUM SERUM 4.2 MEQ/L (3.5-5.1); SODIUM LEVEL 142 MEQ/L (136-145)
== END ==
LOC: M WUC 13:08
PROVIDERS: ATTEND Physician Assistant
DX: I50.42 Chronic combined systolic (congestive) and diastolic (congestive) heart failure (principal); Z79.01 Long term (current) use of anticoagulants

== ENCOUNTER → 2020-12-18 | Outpatient (CLI) | payer MEDICARE, OTHER ==
[2020-12-18 14:03] LABS: BLOOD UREA NITROGEN 23 MG/DL (7-18); CALCIUM LEVEL 8.8 MG/DL (8.8-10.2); CARBON DIOXIDE LEVEL 30 MEQ/L (21-32); CHLORIDE LEVEL 110 MEQ/L (98-107); CREATININE FOR GFR 1.03 MG/DL (0.70-1.30); GLOMERULAR FILTRATION RATE > 60.0 (>42); GLUCOSE, FASTING 98 MG/DL (70-100); MAGNESIUM LEVEL 2.3 MG/DL (1.8-2.4); POTASSIUM SERUM 4.3 MEQ/L (3.5-5.1); SODIUM LEVEL 143 MEQ/L (136-145)
== END ==
LOC: M LAB 13:02
PROVIDERS: ATTEND Physician Assistant
DX: I50.42 Chronic combined systolic (congestive) and diastolic (congestive) heart failure (principal); Z79.01 Long term (current) use of anticoagulants

== ENCOUNTER 2021-01-22 11:17 | Outpatient (CLI) | payer MEDICARE, OTHER ==
[~2021-01-22] VITALS: Ht 175.3 cm; Wt 103.0 kg
[~2021-01-22 11:17] MED LIST changes: +ALBUTEROL 90 MCG/ACT 8GM HFA INHALER INH PRN; +ALBUTEROL SULFATE 2.5 MG/0.5 ML INH NEB SOLN INH PRN; +EPINEPHrine INJ 1 MG/ML 1ML AMP IM PRN; +NS 1,000 ML IV SCH; +diphenhydrAMINE 50MG/ML VIAL (J1200) IV PRN; +methylPREDNISolone 125MG 2ML VIAL IV PRN
[2021-01-22 12:29] VITALS: BP 105/60
[2021-01-22 12:55] VITALS: BP 82/64
[2021-01-22] MEDS ORDERED: diphenhydrAMINE 25MG CAP PO ONE (13:00)
[2021-01-22] MEDS ORDERED: ACETAMINOPHEN TAB 650MG DOSE (2X325MG) PO ONE (13:00)
[2021-01-22] MEDS ORDERED: BAMLANIVIMAB 700 MG, ETESEVIMAB 1,400 MG in NS 250 ML IV ONE (13:00)
[2021-01-22 13:30] VITALS: BP 89/50
== END 2021-01-22 14:45 ==
LOC: M OPCLI4PR 11:17
PROVIDERS: ATTEND Internal Medicine
DX: U07.1 COVID-19 (principal)

== ENCOUNTER → 2021-02-07 | Outpatient (CLI) | payer MEDICARE, OTHER ==
[~2021-02-07] MED LIST changes: -ALBUTEROL 90 MCG/ACT 8GM HFA INHALER INH PRN; -ALBUTEROL SULFATE 2.5 MG/0.5 ML INH NEB SOLN INH PRN; -EPINEPHrine INJ 1 MG/ML 1ML AMP IM PRN; -NS 1,000 ML IV SCH; -diphenhydrAMINE 50MG/ML VIAL (J1200) IV PRN; -methylPREDNISolone 125MG 2ML VIAL IV PRN
[2021-02-07 17:02] LABS: CREATININE FOR GFR 1.32 MG/DL (0.70-1.30); GLOMERULAR FILTRATION RATE 56.8 (>42); MAGNESIUM LEVEL 1.9 MG/DL (1.8-2.4)
== END ==
LOC: M WUC 14:38
PROVIDERS: ATTEND Physician Assistant
DX: I50.42 Chronic combined systolic (congestive) and diastolic (congestive) heart failure (principal)

== ENCOUNTER → 2021-05-16 | Outpatient (CLI) | payer MEDICARE, OTHER ==
[~2021-05-16] MED LIST changes: -ISOS10TA PO; +ISOS10TA9 PO
[2021-05-16 14:33] LABS: HEMATOCRIT 39.9 % (42.0-52.0); HEMOGLOBIN 13.2 g/dl (13.5-17.5); MEAN CORPUSCULAR HEMOGLOBIN 32.8 pg (27.0-33.0); MEAN CORPUSCULAR HGB CONC 33.1 g/dl (32.0-36.5); MEAN CORPUSCULAR VOLUME 99.3 fl (80.0-96.0); PLATELET COUNT, AUTOMATED 312 10^3/uL (150-450); RED BLOOD COUNT 4.02 10^6/uL (4.30-6.10); WHITE BLOOD COUNT 6.6 10^3/uL (4.0-10.0)
[2021-05-16 15:00] LABS: ALBUMIN 3.9 GM/DL (3.2-5.2); BILIRUBIN,TOTAL 1.1 MG/DL (0.2-1.0); CHOLESTEROL RISK RATIO 2.808 (<5); CREATININE FOR GFR 1.62 MG/DL (0.70-1.30); GLOMERULAR FILTRATION RATE 44.8 (>42); POTASSIUM SERUM 4.2 MEQ/L (3.5-5.1); TOTAL PROTEIN 7.7 GM/DL (6.4-8.2)
== END ==
LOC: M LAB 14:12
PROVIDERS: ATTEND Physician Assistant
DX: I50.42 Chronic combined systolic (congestive) and diastolic (congestive) heart failure (principal); Z79.01 Long term (current) use of anticoagulants; E78.00 Pure hypercholesterolemia, unspecified; I25.10 Atherosclerotic heart disease of native coronary artery without angina pectoris; I48.21 Permanent atrial fibrillation; I42.0 Dilated cardiomyopathy

== ENCOUNTER → 2021-11-15 | Outpatient (CLI) | payer MEDICARE, OTHER ==
[2021-11-15 12:38] LABS: HEMATOCRIT 45.4 % (42.0-52.0); HEMOGLOBIN 15.1 g/dl (13.5-17.5); MEAN CORPUSCULAR HEMOGLOBIN 32.5 pg (27.0-33.0); MEAN CORPUSCULAR HGB CONC 33.3 g/dl (32.0-36.5); MEAN CORPUSCULAR VOLUME 97.8 fl (80.0-96.0); PLATELET COUNT, AUTOMATED 274 10^3/uL (150-450); RED BLOOD COUNT 4.64 10^6/uL (4.30-6.10); WHITE BLOOD COUNT 5.4 10^3/uL (4.0-10.0)
[2021-11-15 13:17] LABS: BLOOD UREA NITROGEN 16 MG/DL (7-18); CHLORIDE LEVEL 109 MEQ/L (98-107); GLOMERULAR FILTRATION RATE > 60.0 (>42); GLUCOSE, FASTING 108 MG/DL (70-100); POTASSIUM SERUM 4.3 MEQ/L (3.5-5.1); SODIUM LEVEL 141 MEQ/L (136-145)
[2021-11-15 13:18] LABS: CALCIUM LEVEL 9.2 MG/DL (8.8-10.2); CARBON DIOXIDE LEVEL 26 MEQ/L (21-32); MAGNESIUM LEVEL 2.1 MG/DL (1.8-2.4)
== END ==
LOC: M LAB 11:44
PROVIDERS: ATTEND Physician Assistant
DX: I42.0 Dilated cardiomyopathy (principal); I48.21 Permanent atrial fibrillation

== ENCOUNTER 2024-09-30 17:24 | Emergency (ER) | payer MEDICARE, OTHER ==
[~2024-09-30] VITALS: Ht 170.2 cm; Wt 95.9 kg
[~2024-09-30 17:24] MED LIST changes: +HYDR-161 PO; -HYDR10TAB PO
[2024-09-30 17:48] VITALS: BP 224/120
[2024-09-30] MEDS: **hydrALAZINE** 10 MG TAB PO ONE (17:48)
[2024-09-30] MEDS: BOOSTRIX VACCINE (TETANUS/DIPHTH/ACEL. PERTUSSIS) 0.5 ML SYR IM.IMMUN ONE (17:49)
[2024-09-30 18:14] LABS: CALCIUM LEVEL 8.9 MG/DL (8.3-10.6); CARBON DIOXIDE LEVEL 26.0 MMOL/L (20-31); CHLORIDE LEVEL 102.0 MMOL/L (98-107); CREATININE FOR GFR 1.0 MG/DL (0.70-1.30); GLOMERULAR FILTRATION RATE 78.0 (>42); POTASSIUM SERUM 4.5 MMOL/L (3.5-5.1); SODIUM LEVEL 143.0 MMOL/L (136-145)
[2024-09-30] MEDS ORDERED: HYDR-161 PO (19:37)
[2024-09-30 20:20] VITALS: BP 190/97; TEMP 98.9; O2SAT 94
== END 2024-09-30 20:20 | disposition home or self-care (01) ==
LOC: M ED 17:24
DX: S01.01XA Laceration without foreign body of scalp, initial encounter (principal); I10 Essential (primary) hypertension; Z91.199 Patient's noncompliance with other medical treatment and regimen due to unspecified reason; W01.198A Fall on same level from slipping, tripping and stumbling with subsequent striking against other object, initial encounter; M48.02 Spinal stenosis, cervical region; M25.78 Osteophyte, vertebrae; E03.9 Hypothyroidism, unspecified; Z87.891 Personal history of nicotine dependence; Z86.79 Personal history of other diseases of the circulatory system; Z95.0 Presence of cardiac pacemaker; Z23 Encounter for immunization; Z79.01 Long term (current) use of anticoagulants; Z79.02 Long term (current) use of antithrombotics/antiplatelets; Z79.899 Other long term (current) drug therapy; Y92.89 Other specified places as the place of occurrence of the external cause; Y93.89 Activity, other specified; Y99.0 Civilian activity done for income or pay

== ENCOUNTER 2024-10-04 13:13 | Emergency (ER) | payer OTHER, MEDICARE ==
[~2024-10-04] VITALS: Ht 177.8 cm; Wt 94.7 kg
[2024-10-04 15:27] VITALS: BP 148/64; TEMP 98; O2SAT 100
== END 2024-10-04 15:28 | disposition home or self-care (01) ==
LOC: M ED 13:13
DX: Z48.02 Encounter for removal of sutures (principal); I10 Essential (primary) hypertension; E03.9 Hypothyroidism, unspecified; Z86.79 Personal history of other diseases of the circulatory system; Z87.442 Personal history of urinary calculi; Z79.01 Long term (current) use of anticoagulants; Z79.02 Long term (current) use of antithrombotics/antiplatelets; Z79.1 Long term (current) use of non-steroidal anti-inflammatories (NSAID); Z79.899 Other long term (current) drug therapy